=== PATIENT | male | born 1970 | race Two or more races ===

== ENCOUNTER 2016-05-20 10:20 | Inpatient (IN) | payer OTHER ==
[2016-05-20 10:30] VITALS: BMI 23.3
--- NOTE | 2016-05-20 10:57 | HP ---
COWS - Scale Resting Pulse: 1= OR 81-100 Sweatin=Flushed/Facial Moisture Restless Observation: 3= Extraneous Movement Pupil Size: 0= Normal to Room Light Bone or Joint Aches: 2= Severe Diffuse Aches Runny Nose/ Eye Tearin= Runny Nose/Eyes GI Upset > 30mins: 2= Nausea/Diarrhea Tremor Observation: 2= Slight Tremor Visible Yawning Observation: 1= 1-2x During Session Anxiety or Irritability: 2=Irritable/Anxious Goose Flesh Skin: 3=Piloerection COWS Score: 20 CIWA Score - CIWA Score Nausea/Vomitin Muscle Tremors: 4-Moderate,w/Arms Extend Anxiety: 4-Mod. Anxious/Guarded Agitation: 3 Paroxysmal Sweats: 4-Forehead w/Sweat Beads Orientation: 0-Oriented Tacttile Disturbances: 0-None Auditory Disturbances: 0-None Visual Disturbances: 0-None Headache: 0-None Present CIWA-Ar Total Score: 18 Admission ROS BHS - HPI Chief Complaint: "I don't want to miss my family." Pt is here to Detox from alcohol and Heroin. Allergies/Adverse Reactions: Allergies Allergy/AdvReac Type Severity Reaction Status Date / Time fish derived [Fish derived] Allergy Mild Difficulty Verified 05/20/16 10:30 Breathing milk [Milk] Allergy Mild Rash Verified 05/20/16 10:30 shellfish derived Allergy Mild Difficulty Verified 05/20/16 10:30 [Shellfish Derived] Breathing Unclassified Drug Allergy Unknown Verified 05/20/16 10:30 roast beef Allergy Swelling Uncoded 05/20/16 10:30 History of Present Illness: Pt. is a 46 YO male here to Detox from Alcohol and Heroin. Pt. has had previous Detox and Rehab admissions at [facility]. Exam Limitations: No Limitations - Ebola screening Have you traveled outside of the country in the last 21 days: No Have you had contact with anyone from an Ebola affected area: No Have you been sick,other than usual withdrawal symptoms: No Do you have a fever: No - Review of Systems Constitutional: Chills, Diaphoresis, Fever, Malaise EENT: reports: Tearing, Nose Congestion, Sinus Pressure Respiratory: reports: No Symptoms reported Cardiac: reports: No Symptoms Reported GI: reports: Diarrhea, Nausea : reports: No Symptoms Reported Musculoskeletal: reports: Joint Pain, Muscle Pain, Joint Stiffness Integumentary: reports: Other (Healing scab on Left thumb. Pt. reports that he fell on it approx. 4 days ago. No bleeding, unusual discharge, or signs of infection noted.) Neuro: reports: Tremors Endocrine: reports: No Symptoms Reported Hematology: reports: No Symptoms Reported Psychiatric: reports: Judgement Intact, Mood/Affect Appropiate, Orientated x3, Anxious Other Systems: Reviewed and Negative Patient History - Patient Medical History Hx Anemia: No Hx Asthma: Yes (Occasional Albuterol Inhaler Use.) Hx Chronic Obstructive Pulmonary Disease (COPD): No Hx Cancer: No Hx Cardiac Disorders: No Hx Congestive Heart Failure: No Hx Hypertension: No (BP only sometimes high when pt. uses drugs / detoxes.) Hx Hypercholesterolemia: No Hx Pacemaker: No HX Cerebrovascular Accident: No Hx Seizures: No Hx Dementia: No Hx Diabetes: No Hx Gastrointestinal Disorders: No Hx Liver Disease: Yes (Hep C, Diagnosed 1990.) Hx Genitourinary Disorders: No Hx Sexually Transmitted Disorders: No Hx Renal Disease (ESRD): No Hx Thyroid Disease: No Hx Human Immunodeficiency Virus (HIV): Yes (NOT CURRENTLY ON MEDICATION) Hx Hepatitis C: Yes (HEP B AND HEP C, NO TREATMENT YET.) Hx Depression: No Hx Suicide Attempt: No (PATIENT DENIES CURRENT SI / HI.) Hx Bipolar Disorder: No Hx Schizophrenia: No - Patient Surgical History Past Surgical History: No Hx Neurologic Surgery: No Hx Cataract Extraction: No Hx Cardiac Surgery: No Hx Lung Surgery: No Hx Breast Surgery: No Hx Breast Biopsy: No Hx Abdominal Surgery: No Hx Appendectomy: No Hx Cholecystectomy: No Hx Genitourinary Surgery: No Hx Section: No Hx Orthopedic Surgery: No Anesthesia Reaction: No - PPD History Previous Implant?: Yes Documented Results: Negative w/proof Implanted On Prior R Admission?: Yes Date: 03/12/16 Results: 0 mm PPD to be Administered?: No - Reproductive History Patient is a Female of Child Bearing Age (11 -55 yrs old): No (PATIENT IS MALE.) - Smoking Cessation Smoking history: Current every day smoker Have you smoked in the past 12 months: Yes Aproximately how many cigarettes per day: 10 Cigars Per Day: 0 Hx Chewing Tobacco Use: No Initiated information on smoking cessation: Yes 'Breaking Loose' booklet given: 05/20/16 (GIVEN ON UNIT.) - Substance & Tx. History Hx Alcohol Use: Yes Hx Substance Use: Yes Substance Use Type: Alcohol, Heroin Hx Substance Use Treatment: Yes (Previous Detox and Rehab admissions at [facility].) - Substances Abused Alcohol Route: Oral Frequency: Daily Amount used: 24 beers, 1 pint Vodka Age of first use: 14 Date of Last Use: 05/19/16 Heroin Route: Injection Frequency: Daily Amount used: 10 BAGS Age of first use: 14 Date of Last Use: 05/19/16 Family Disease History - Family Disease History Family History: Denies Admission Physical Exam [facility] - Vital Signs Vital Signs: Vital Signs - 24 hr 05/20/16 10:25 Temperature 97.1 F L Pulse Rate 81 Respiratory 22 Rate Blood Pressure 153/91 - Physical General Appearance: Yes: Nourished, Appropriately Dressed, Moderate Distress, Tremorous, Sweating, Anxious HEENTM: Yes: Hearing grossly Normal, Normocephalic, Normal Voice, PATRICIA, Pharynx Normal Respiratory: Yes: Chest Non-Tender, Lungs Clear, No Respiratory Distress Neck: Yes: No masses,lesions,Nodules, Supple, Trachea in good position Breast: Yes: Breast Exam Deferred Cardiology: Yes: Regular Rhythm, Regular Rate, S1, S2 Abdominal: Yes: Normal Bowel Sounds, Non Tender, Flat, Soft Genitourinary: Yes: Within Normal Limits Back: Yes: Normal Inspection Musculoskeletal: Yes: Gait Steady, Joint Stiffness, Other (Patient walking with a limp - he reports that that is because his legs are currently "cramping.") Extremities: Yes: Tremors Neurological: Yes: Fully Oriented, Alert, Normal Mood/Affect, Normal Response Integumentary: Yes: Normal Color, Warm, Track Ellis (Noted on Left Forearm ( near wrist) and Right Forearm. No signs of infection noted at any site.) Lymphatic: Yes: Within Normal Limits - Diagnostic (1) Alcohol dependence with uncomplicated withdrawal Current Visit: Yes Status: Acute (2) Nicotine dependence Current Visit: Yes Status: Chronic Qualifiers: Nicotine product type: cigarettes Substance use status: uncomplicated Qualified Code(s): F17.210 - Nicotine dependence, cigarettes, uncomplicated (3) Opioid dependence with withdrawal Current Visit: Yes Status: Acute (4) Asthma Current Visit: Yes Status: Chronic Qualifiers: Asthma severity: mild intermittent Asthma complication type: uncomplicated Qualified Code(s): J45.20 - Mild intermittent asthma, uncomplicated (5) HIV (human immunodeficiency virus infection) Current Visit: Yes Status: Chronic (6) Hepatitis B Current Visit: Yes Status: Chronic Qualifiers: Viral hepatitis chronicity: unspecified Hepatic coma status: without hepatic coma Hepatitis delta agent presence: without delta-agent Qualified Code(s): B19.10 - Unspecified viral hepatitis B without hepatic coma (7) Hepatitis C Current Visit: Yes Status: Chronic Qualifiers: Viral hepatitis chronicity: chronic Hepatic coma status: without hepatic coma Qualified Code(s): B18.2 - Chronic viral hepatitis C Cleared for Admission BHS - Detox or Rehab BHS Level of Care: Medically Managed (ADVISED PATIENT TO FOLLOW-UP WITH SPRAY PAINTER / REHAB MEDICAL PROVIDER AFTER DISCAHRGE FROM DETOX FOR GENERAL MEDICAL ASSESSMENT.) Detox Regimen/Protocol: Methadone/Librium BHS Breath Alcohol Content Breath Alcohol Content: 0 Urine Drug Screen - Results Drug Screen Negative: No Urine Drug Screen Results: OPI-Opiates, MTD-Methadone
[2016-05-20] MEDS ORDERED: ACETAMINOPHEN 325 MG TABLET (FP) PO PRN (11:24)
[2016-05-20] MEDS ORDERED: P-EPHED 60MG/TRIPROLIDI 2.5MG TABLET PO PRN (11:24)
[2016-05-20] MEDS ORDERED: MAGNESIUM CITRATE 300 ML BOTTLE PO PRN (11:24)
[2016-05-20] MEDS ORDERED: MAG HYDROX/AL HYDROX/SIMETH 30 ML UNIT-DOSE CUP PO PRN (11:24)
[2016-05-20] MEDS ORDERED: NICOTINE POLACRILEX 2 MG GUM BC PRN (11:24)
[2016-05-20] MEDS ORDERED: MENTHOL/PHENOL 1 EACH UD MM PRN (11:24)
[2016-05-20] MEDS ORDERED: IBUPROFEN 400 MG TABLET (FP) PO PRN (11:24)
[2016-05-20] MEDS ORDERED: MAGNESIUM HYDROX 2400MG/30ML ORAL SUSPENSION 30 ML CUP PO PRN (11:24)
[2016-05-20] MEDS ORDERED: chlordiazePOXIDE HCL 25 MG CAPSULE PO PRN (11:24)
[2016-05-20] MEDS ORDERED: LOPERAMIDE HCL 2 MG CAPSULE PO PRN (11:24)
[2016-05-20] MEDS ORDERED: hydrOXYzine PAMOATE 50 MG CAPSULE (FP) PO PRN (11:24)
[2016-05-20] MEDS ORDERED: chlordiazePOXIDE HCL 25 MG CAPSULE PO ONE (11:24)
[2016-05-20] MEDS ORDERED: guaiFENesin/D-METHORPHAN HB 10 ML UNIT-DOSE CUPS PO PRN (11:24)
[2016-05-20] MEDS ORDERED: BACITRACIN 30 GM TUBE TOPICAL OINTMENT TP SCH ×2 (11:30→11:40)
[2016-05-20] MEDS ORDERED: ALBUTEROL SO4 6.7 GM HFA INHALER IH PRN (11:30)
[2016-05-20] MEDS ORDERED: METHADONE HCL 10 MG TABLET (FOR DETOX USE ONLY) PO ONE ×2 (12:45→23:00)
[2016-05-20] MEDS: NICOTINE 21 MG/24 HOURS TOPICAL PATCH TD SCH (12:49)
[2016-05-20] MEDS: chlordiazePOXIDE HCL 25 MG CAPSULE PO SCH ×2 (17:38→22:23)
[2016-05-20] MEDS: BACITRACIN 0.9 GM PACKET TP SCH ×2 (20:20→22:23)
--- NOTE | 2016-05-20 22:22 | EKG ---
Test Reason : Blood Pressure : / mmHG Vent. Rate : 067 BPM Atrial Rate : 067 BPM P-R Int : 130 ms QRS Dur : 102 ms QT Int : 416 ms P-R-T Axes : 055 020 034 degrees QTc Int : 439 ms NORMAL SINUS RHYTHM MODERATE VOLTAGE CRITERIA FOR LVH, MAY BE NORMAL VARIANT BORDERLINE ECG NO PREVIOUS ECGS AVAILABLE Confirmed by FÁTIMA TEJADA MD ([id number]) on 05/20/2016 10:21:52 PM Referred By: Confirmed By:FÁTIMA TEJADA MD
[2016-05-20] MEDS: diphenhydrAMINE HCL 50 MG CAPSULE PO PRN (22:24)
[2016-05-20] MEDS: THIAMINE HCL 100 MG TABLET (FP) PO SCH (22:48)
[2016-05-21] MEDS: chlordiazePOXIDE HCL 25 MG CAPSULE PO SCH ×4 (05:34→22:08)
[2016-05-21] MEDS ORDERED: METHADONE HCL 10 MG TABLET (FOR DETOX USE ONLY) PO SCH (10:00)
[2016-05-21] MEDS: BACITRACIN 0.9 GM PACKET TP SCH ×2 (10:05→22:08)
[2016-05-21] MEDS: NICOTINE 21 MG/24 HOURS TOPICAL PATCH TD SCH (10:05)
[2016-05-21] MEDS: PRENATAL VITAMINS W/ FOLIC ACID TABLET (FP) PO SCH (10:05)
[2016-05-21 10:44] LABS: MCH 30.6 pg (25.7-33.7); MCHC 33.3 g/dl (32.0-35.9); MEAN CELL VOLUME 91.9 fl (80-96); MEAN PLT VOLUME 8.5 fl (7.5-11.1); PLATELET COUNT 129 K/MM3 (134-434); RDW 15.5 % (11.9-15.9); WHITE BLOOD COUNT 3.8 K/mm3 (4.0-10.0)
[2016-05-21 10:55] LABS: CALCIUM 8.6 mg/dL (8.5-10.1); GLUCOSE,RANDOM 88 mg/dL (74-106); SGOT/AST 45 U/L (15-37); SGPT/ALT 29 U/L (12-78)
[2016-05-21 10:58] LABS: ALBUMIN 2.8 g/dl (3.4-5.0); ALK PHOS 65 U/L (45-117); ANION GAP 6 (8-16); BILIRUBIN,TOTAL 0.5 mg/dL (0.2-1.0); CO2 33 mmol/L (21-32); CREATININE 0.6 mg/dL (0.7-1.3); TOT PROT 9.5 g/dl (6.4-8.2)
[2016-05-21 11:17] LABS: URINE APPEARANCE CLEAR; URINE BILIRUBIN NEGATIVE (NEGATIVE); URINE COLOR LTYELLOW; URINE GLUCOSE (UA) NEGATIVE (NEGATIVE); URINE KETONE NEGATIVE (NEGATIVE); URINE LEUK ESTERASE NEGATIVE (NEGATIVE); URINE NITRITE NEGATIVE (NEGATIVE); URINE PROTEIN NEGATIVE (NEGATIVE); URINE UROBILINOGEN NEGATIVE E.U./dl (0.2-1.0)
[2016-05-21 11:18] LABS: URINE BLOOD 1+ (NEGATIVE)
[2016-05-21 11:33] LABS: URINE RBC 3 /hpf (0-3); URINE WBC 2 /hpf (3-5)
--- NOTE | 2016-05-21 12:40 | PN ---
[facility] CIWA - CIWA Score Nausea/Vomitin-No Nausea/No Vomiting Muscle Tremors: 4-Moderate,w/Arms Extend Anxiety: 4-Mod. Anxious/Guarded Agitation: 3 Paroxysmal Sweats: 3 Orientation: 0-Oriented Tacttile Disturbances: 0-None Auditory Disturbances: 0-None Visual Disturbances: 0-None Headache: 0-None Present CIWA-Ar Total Score: 14 S COWS - Scale Resting Pulse: 0= [place] 80 or Below Sweatin=Flushed/Facial Moisture Restless Observation: 1= Difficult to Sit Still Pupil Size: 0= Normal to Room Light Bone or Joint Aches: 1= Mild Discomfort Runny Nose/ Eye Tearin= Runny Nose/Eyes GI Upset > 30mins: 2= Nausea/Diarrhea Tremor Observation of Outstretched Hands: 2= Slight Tremor Visible Yawning Observation: 1= 1-2x During Session Anxiety or Irritability: 2=Irritable/Anxious Goose Flesh Skin: 0=Smooth Skin COWS Score: 13 S Progress Note (SOAP) Subjective: Anxiety,tremors,sweating,interrupted sleep,restless. Objective: 05/21/16 12:38 Vital Signs - 8 hr 05/21/16 05/21/16 06:37 09:21 Temperature 96.7 F L 96.2 F L Pulse Rate 58 L 64 Respiratory 18 18 Rate Blood Pressure 128/85 142/83 Laboratory Tests 05/21/16 05/21/16 05/21/16 07:00 07:00 07:00 WBC 3.8 L RBC 4.12 Hgb 12.6 Hct 37.9 MCV 91.9 MCHC 33.3 RDW 15.5 Plt Count 129 L MPV 8.5 Sodium 136 Potassium 3.8 Chloride 97 L Carbon Dioxide 33 H Anion Gap 6 L BUN 12 Creatinine 0.6 L Creat Clearance w eGFR > 60 Random Glucose 88 Calcium 8.6 Total Bilirubin 0.5 D AST 45 H ALT 29 Alkaline Phosphatase 65 Total Protein 9.5 H Albumin 2.8 L Urine Color Urine Appearance Urine pH Ur Specific [place] Urine Protein Urine Glucose (UA) Urine Ketones Urine Blood Urine Nitrite Urine Bilirubin Urine Urobilinogen Ur Leukocyte Esterase Urine RBC Urine WBC Ur Epithelial Cells RPR Titer Nonreactive 05/21/16 08:00 WBC RBC Hgb Hct MCV MCHC RDW Plt Count MPV Sodium Potassium Chloride Carbon Dioxide Anion Gap BUN Creatinine Creat Clearance w eGFR Random Glucose Calcium Total Bilirubin AST ALT Alkaline Phosphatase Total Protein Albumin Urine Color Ltyellow Urine Appearance Clear Urine pH 8.0 D Ur Specific [place] 1.010 Urine Protein Negative Urine Glucose (UA) Negative Urine Ketones Negative Urine Blood 1+ H Urine Nitrite Negative Urine Bilirubin Negative Urine Urobilinogen Negative Ur Leukocyte Esterase Negative Urine RBC 3 Urine WBC 2 Ur Epithelial Cells Rare RPR Titer labs noted Assessment: 05/21/16 12:39 Withdrawal sx. Plan: Continue detox
[2016-05-21 14:02] LABS: SICKLE CELL SCREEN NEGATIVE (NEGATIVE)
[2016-05-21] MEDS: diphenhydrAMINE HCL 50 MG CAPSULE PO PRN (22:08)
[2016-05-21] MEDS: THIAMINE HCL 100 MG TABLET (FP) PO SCH (22:08)
[2016-05-22] MEDS: chlordiazePOXIDE HCL 25 MG CAPSULE PO SCH ×2 (05:10→10:02)
[2016-05-22] MEDS ORDERED: METHADONE HCL 5 MG TABLET (FOR DETOX USE ONLY) PO SCH ×2 (10:00)
[2016-05-22] MEDS: PRENATAL VITAMINS W/ FOLIC ACID TABLET (FP) PO SCH (10:01)
[2016-05-22] MEDS: BACITRACIN 0.9 GM PACKET TP SCH ×2 (10:02→22:03)
[2016-05-22] MEDS: NICOTINE 21 MG/24 HOURS TOPICAL PATCH TD SCH (10:02)
--- NOTE | 2016-05-22 10:03 | PN ---
S CIWA - CIWA Score Nausea/Vomitin-No Nausea/No Vomiting Muscle Tremors: 3 Anxiety: 3 Agitation: 4-Moderately Restless Paroxysmal Sweats: 3 Orientation: 0-Oriented Tacttile Disturbances: 0-None Auditory Disturbances: 0-None Visual Disturbances: 0-None Headache: 0-None Present CIWA-Ar Total Score: 13 BHS COWS - Scale Resting Pulse: 0= [place] 80 or Below Sweatin=Flushed/Facial Moisture Restless Observation: 1= Difficult to Sit Still Pupil Size: 0= Normal to Room Light Bone or Joint Aches: 1= Mild Discomfort Runny Nose/ Eye Tearin= Nasal Congestion GI Upset > 30mins: 1= Stomach Cramp Tremor Observation of Outstretched Hands: 2= Slight Tremor Visible Yawning Observation: 1= 1-2x During Session Anxiety or Irritability: 2=Irritable/Anxious Goose Flesh Skin: 0=Smooth Skin COWS Score: 11 S Progress Note (SOAP) Subjective: Anxiety,tremors,sweating,interrupted sleep,body aches Objective: 05/22/16 10:03 Vital Signs - 8 hr 05/22/16 05/22/16 05/22/16 03:25 05:52 09:43 Temperature 97.5 F L 96.1 F L Pulse Rate 74 75 Respiratory 18 16 18 Rate Blood Pressure 112/80 103/78 Laboratory Last Values WBC 3.8 K/mm3 (4.0-10.0) L 05/21/16 07:00 RBC 4.12 M/mm3 (4.00-5.60) 05/21/16 07:00 Hgb 12.6 GM/dL (11.7-16.9) 05/21/16 07:00 Hct 37.9 % (35.4-49) 05/21/16 07:00 MCV 91.9 fl (80-96) 05/21/16 07:00 MCHC 33.3 g/dl (32.0-35.9) 05/21/16 07:00 RDW 15.5 % (11.9-15.9) 05/21/16 07:00 Plt Count 129 K/MM3 (134-434) L 05/21/16 07:00 MPV 8.5 fl (7.5-11.1) 05/21/16 07:00 Sickle Cell Screen Negative (NEGATIVE) 05/21/16 07:00 Sodium 136 mmol/L (136-145) 05/21/16 07:00 Potassium 3.8 mmol/L (3.5-5.1) 05/21/16 07:00 Chloride 97 mmol/L (98-107) L 05/21/16 07:00 Carbon Dioxide 33 mmol/L (21-32) H 05/21/16 07:00 Anion Gap 6 (8-16) L 05/21/16 07:00 BUN 12 mg/dL (7-18) 05/21/16 07:00 Creatinine 0.6 mg/dL (0.7-1.3) L 05/21/16 07:00 Creat Clearance w eGFR > 60 (>60) 05/21/16 07:00 Random Glucose 88 mg/dL (74-106) 05/21/16 07:00 Calcium 8.6 mg/dL (8.5-10.1) 05/21/16 07:00 Total Bilirubin 0.5 mg/dL (0.2-1.0) D 05/21/16 07:00 AST 45 U/L (15-37) H 05/21/16 07:00 ALT 29 U/L (12-78) 05/21/16 07:00 Alkaline Phosphatase 65 U/L (45-117) 05/21/16 07:00 Total Protein 9.5 g/dl (6.4-8.2) H 05/21/16 07:00 Albumin 2.8 g/dl (3.4-5.0) L 05/21/16 07:00 Urine Color Ltyellow 05/21/16 08:00 Urine Appearance Clear 05/21/16 08:00 Urine pH 8.0 (5.0-8.0) D 05/21/16 08:00 Ur Specific [place] 1.010 (1.001-1.035) 05/21/16 08:00 Urine Protein Negative (NEGATIVE) 05/21/16 08:00 Urine Glucose (UA) Negative (NEGATIVE) 05/21/16 08:00 Urine Ketones Negative (NEGATIVE) 05/21/16 08:00 Urine Blood 1+ (NEGATIVE) H 05/21/16 08:00 Urine Nitrite Negative (NEGATIVE) 05/21/16 08:00 Urine Bilirubin Negative (NEGATIVE) 05/21/16 08:00 Urine Urobilinogen Negative E.U./dl (0.2-1.0) 05/21/16 08:00 Ur Leukocyte Esterase Negative (NEGATIVE) 05/21/16 08:00 Urine RBC 3 /hpf (0-3) 05/21/16 08:00 Urine WBC 2 /hpf (3-5) 05/21/16 08:00 Ur Epithelial Cells Rare /hpf (FEW) 05/21/16 08:00 RPR Titer Nonreactive (NONREACTIVE) 05/21/16 07:00 Hepatitis C Antibody >11.0 s/co ratio (0.0-0.9) H 05/20/16 07:00 labs noted Assessment: 05/22/16 10:04 Withdrawal sx. Plan: continue detox
[2016-05-22] MEDS: chlordiazePOXIDE 5 MG CAPSULE PO SCH ×2 (16:59→22:03)
[2016-05-22] MEDS: diphenhydrAMINE HCL 50 MG CAPSULE PO PRN (22:03)
[2016-05-22] MEDS: THIAMINE HCL 100 MG TABLET (FP) PO SCH (22:03)
[2016-05-23] MEDS: chlordiazePOXIDE 5 MG CAPSULE PO SCH ×2 (05:18→10:04)
[2016-05-23] MEDS ORDERED: METHADONE HCL 10 MG TABLET (FOR DETOX USE ONLY) PO SCH (10:00)
[2016-05-23] MEDS: PRENATAL VITAMINS W/ FOLIC ACID TABLET (FP) PO SCH (10:03)
[2016-05-23] MEDS: NICOTINE 21 MG/24 HOURS TOPICAL PATCH TD SCH (10:04)
[2016-05-23] MEDS: BACITRACIN 0.9 GM PACKET TP SCH ×2 (10:04→22:04)
--- NOTE | 2016-05-23 12:20 | PN ---
BHS Progress Note (SOAP) Subjective: Sweating,interrupted sleep,restless. Objective: 05/23/16 12:19 Vital Signs - 8 hr 05/23/16 05/23/16 06:06 09:39 Temperature 96.3 F L 96.8 F L Pulse Rate 71 78 Respiratory 16 18 Rate Blood Pressure 108/73 103/65 Laboratory Last Values WBC 3.8 K/mm3 (4.0-10.0) L 05/21/16 07:00 RBC 4.12 M/mm3 (4.00-5.60) 05/21/16 07:00 Hgb 12.6 GM/dL (11.7-16.9) 05/21/16 07:00 Hct 37.9 % (35.4-49) 05/21/16 07:00 MCV 91.9 fl (80-96) 05/21/16 07:00 MCHC 33.3 g/dl (32.0-35.9) 05/21/16 07:00 RDW 15.5 % (11.9-15.9) 05/21/16 07:00 Plt Count 129 K/MM3 (134-434) L 05/21/16 07:00 MPV 8.5 fl (7.5-11.1) 05/21/16 07:00 Sickle Cell Screen Negative (NEGATIVE) 05/21/16 07:00 Sodium 136 mmol/L (136-145) 05/21/16 07:00 Potassium 3.8 mmol/L (3.5-5.1) 05/21/16 07:00 Chloride 97 mmol/L (98-107) L 05/21/16 07:00 Carbon Dioxide 33 mmol/L (21-32) H 05/21/16 07:00 Anion Gap 6 (8-16) L 05/21/16 07:00 BUN 12 mg/dL (7-18) 05/21/16 07:00 Creatinine 0.6 mg/dL (0.7-1.3) L 05/21/16 07:00 Creat Clearance w eGFR > 60 (>60) 05/21/16 07:00 Random Glucose 88 mg/dL (74-106) 05/21/16 07:00 Calcium 8.6 mg/dL (8.5-10.1) 05/21/16 07:00 Total Bilirubin 0.5 mg/dL (0.2-1.0) D 05/21/16 07:00 AST 45 U/L (15-37) H 05/21/16 07:00 ALT 29 U/L (12-78) 05/21/16 07:00 Alkaline Phosphatase 65 U/L (45-117) 05/21/16 07:00 Total Protein 9.5 g/dl (6.4-8.2) H 05/21/16 07:00 Albumin 2.8 g/dl (3.4-5.0) L 05/21/16 07:00 Urine Color Ltyellow 05/21/16 08:00 Urine Appearance Clear 05/21/16 08:00 Urine pH 8.0 (5.0-8.0) D 05/21/16 08:00 Ur Specific [place] 1.010 (1.001-1.035) 05/21/16 08:00 Urine Protein Negative (NEGATIVE) 05/21/16 08:00 Urine Glucose (UA) Negative (NEGATIVE) 05/21/16 08:00 Urine Ketones Negative (NEGATIVE) 05/21/16 08:00 Urine Blood 1+ (NEGATIVE) H 05/21/16 08:00 Urine Nitrite Negative (NEGATIVE) 05/21/16 08:00 Urine Bilirubin Negative (NEGATIVE) 05/21/16 08:00 Urine Urobilinogen Negative E.U./dl (0.2-1.0) 05/21/16 08:00 Ur Leukocyte Esterase Negative (NEGATIVE) 05/21/16 08:00 Urine RBC 3 /hpf (0-3) 05/21/16 08:00 Urine WBC 2 /hpf (3-5) 05/21/16 08:00 Ur Epithelial Cells Rare /hpf (FEW) 05/21/16 08:00 RPR Titer Nonreactive (NONREACTIVE) 05/21/16 07:00 Hepatitis C Antibody >11.0 s/co ratio (0.0-0.9) H 05/20/16 07:00 labs noted Assessment: 05/23/16 12:20 Withdrawal sx. Plan: Continue detox
[2016-05-23] MEDS: chlordiazePOXIDE HCL 10 MG CAPSULE PO SCH ×2 (17:09→22:05)
[2016-05-23] MEDS: diphenhydrAMINE HCL 50 MG CAPSULE PO PRN (22:05)
[2016-05-23] MEDS: THIAMINE HCL 100 MG TABLET (FP) PO SCH (22:05)
[2016-05-24] MEDS: chlordiazePOXIDE HCL 10 MG CAPSULE PO SCH (05:10)
[2016-05-24] MEDS ORDERED: METHADONE HCL 5 MG TABLET (FOR DETOX USE ONLY) PO SCH (06:00)
[2016-05-24 06:55] VITALS: BP 106/78; PULSE 77; TEMP 98.6
--- NOTE | 2016-05-24 09:18 | DS ---
[facility] Detox Discharge Summary Admission Date: 05/20/16 Discharge Date: 05/24/16 - History Present History: Alcohol Dependence, Opioid Dependence Pertinent Past History: Asthma HIV infection - Physical Exam Results Vital Signs: Vital Signs Temperature 98.6 F 05/24/16 06:54 Pulse Rate 77 05/24/16 06:54 Respiratory Rate 16 05/24/16 06:54 Blood Pressure 106/78 05/24/16 06:54 O2 Sat by Pulse Oximetry (%) Pertinent Admission Physical Exam Findings: Withdrawal sx Laboratory Last Values WBC 3.8 K/mm3 (4.0-10.0) L 05/21/16 07:00 RBC 4.12 M/mm3 (4.00-5.60) 05/21/16 07:00 Hgb 12.6 GM/dL (11.7-16.9) 05/21/16 07:00 Hct 37.9 % (35.4-49) 05/21/16 07:00 MCV 91.9 fl (80-96) 05/21/16 07:00 MCHC 33.3 g/dl (32.0-35.9) 05/21/16 07:00 RDW 15.5 % (11.9-15.9) 05/21/16 07:00 Plt Count 129 K/MM3 (134-434) L 05/21/16 07:00 MPV 8.5 fl (7.5-11.1) 05/21/16 07:00 Sickle Cell Screen Negative (NEGATIVE) 05/21/16 07:00 Sodium 136 mmol/L (136-145) 05/21/16 07:00 Potassium 3.8 mmol/L (3.5-5.1) 05/21/16 07:00 Chloride 97 mmol/L (98-107) L 05/21/16 07:00 Carbon Dioxide 33 mmol/L (21-32) H 05/21/16 07:00 Anion Gap 6 (8-16) L 05/21/16 07:00 BUN 12 mg/dL (7-18) 05/21/16 07:00 Creatinine 0.6 mg/dL (0.7-1.3) L 05/21/16 07:00 Creat Clearance w eGFR > 60 (>60) 05/21/16 07:00 Random Glucose 88 mg/dL (74-106) 05/21/16 07:00 Calcium 8.6 mg/dL (8.5-10.1) 05/21/16 07:00 Total Bilirubin 0.5 mg/dL (0.2-1.0) D 05/21/16 07:00 AST 45 U/L (15-37) H 05/21/16 07:00 ALT 29 U/L (12-78) 05/21/16 07:00 Alkaline Phosphatase 65 U/L (45-117) 05/21/16 07:00 Total Protein 9.5 g/dl (6.4-8.2) H 05/21/16 07:00 Albumin 2.8 g/dl (3.4-5.0) L 05/21/16 07:00 Urine Color Ltyellow 05/21/16 08:00 Urine Appearance Clear 05/21/16 08:00 Urine pH 8.0 (5.0-8.0) D 05/21/16 08:00 Ur Specific [place] 1.010 (1.001-1.035) 05/21/16 08:00 Urine Protein Negative (NEGATIVE) 05/21/16 08:00 Urine Glucose (UA) Negative (NEGATIVE) 05/21/16 08:00 Urine Ketones Negative (NEGATIVE) 05/21/16 08:00 Urine Blood 1+ (NEGATIVE) H 05/21/16 08:00 Urine Nitrite Negative (NEGATIVE) 05/21/16 08:00 Urine Bilirubin Negative (NEGATIVE) 05/21/16 08:00 Urine Urobilinogen Negative E.U./dl (0.2-1.0) 05/21/16 08:00 Ur Leukocyte Esterase Negative (NEGATIVE) 05/21/16 08:00 Urine RBC 3 /hpf (0-3) 05/21/16 08:00 Urine WBC 2 /hpf (3-5) 05/21/16 08:00 Ur Epithelial Cells Rare /hpf (FEW) 05/21/16 08:00 RPR Titer Nonreactive (NONREACTIVE) 05/21/16 07:00 Hepatitis C Antibody >11.0 s/co ratio (0.0-0.9) H 05/20/16 07:00 labs noted - Treatment Hospital Course: Detox Protocol Followed, Detoxed Safely, Responded well, Discharged Condition Good, Rehab Referral Accepted Patient has Accepted a Rehab Referral to: [facility] IOP - Medication Discharge Medications: Ambulatory Orders Albuterol Sulfate Inhaler - [Ventolin HFA Inhaler -] 2 inh IH Q4H PRN #1 inhaler 03/15/16 - Diagnosis (1) Alcohol dependence with uncomplicated withdrawal Current Visit: Yes Status: Acute (2) Opioid dependence with withdrawal Current Visit: Yes Status: Acute (3) Asthma Current Visit: Yes Status: Chronic Qualifiers: Asthma severity: mild intermittent Asthma complication type: uncomplicated Qualified Code(s): J45.20 - Mild intermittent asthma, uncomplicated (4) HIV (human immunodeficiency virus infection) Current Visit: Yes Status: Chronic (5) Hepatitis B Current Visit: Yes Status: Chronic Qualifiers: Viral hepatitis chronicity: unspecified Hepatic coma status: without hepatic coma Hepatitis delta agent presence: without delta-agent Qualified Code(s): B19.10 - Unspecified viral hepatitis B without hepatic coma (6) Hepatitis C Current Visit: Yes Status: Chronic Qualifiers: Viral hepatitis chronicity: chronic Hepatic coma status: without hepatic coma Qualified Code(s): B18.2 - Chronic viral hepatitis C (7) Nicotine dependence Current Visit: Yes Status: Chronic Qualifiers: Nicotine product type: cigarettes Substance use status: uncomplicated Qualified Code(s): F17.210 - Nicotine dependence, cigarettes, uncomplicated - AMA Did Patient Leave Against Medical Advice: No
[2016-05-24] MEDS ORDERED: METHADONE HCL 10 MG TABLET (FOR DETOX USE ONLY) PO SCH (10:00)
[2016-05-24 14:18] LABS: HCV LOG 10 6.674 (.)
[2016-05-25] MEDS ORDERED: METHADONE HCL 5 MG TABLET (FOR DETOX USE ONLY) PO SCH (06:00)
== END 2016-05-24 08:28 | disposition home or self-care (01) | DRG 773 ==
LOC: YASAS 10:20 → Y3N 12:05
PROVIDERS: ADMIT Internal Medicine; ATTEND Internal Medicine
PROC: HZ2ZZZZ Detoxification Services for Substance Abuse Treatment (ICD-10-PCS; principal; 2016-05-24)
DX: F11.23 Opioid dependence with withdrawal (principal); F10.230 Alcohol dependence with withdrawal, uncomplicated; F17.210 Nicotine dependence, cigarettes, uncomplicated; J45.20 Mild intermittent asthma, uncomplicated; Z21 Asymptomatic human immunodeficiency virus [HIV] infection status; B19.10 Unspecified viral hepatitis B without hepatic coma; B18.2 Chronic viral hepatitis C
CPT/HCPCS: 36415; 80053; 81003; 81015; 85027; 85660; 86593; 87522; 93005; 93010

== ENCOUNTER 2017-04-12 11:33 | Inpatient (IN) | payer OTHER ==
[2017-04-12 12:39] VITALS: BMI 23.6
--- NOTE | 2017-04-12 16:57 | HP ---
COWS - Scale Resting Pulse: 1= HI 81-100 Sweatin= Chills/Flushing Restless Observation: 3= Extraneous Movement Pupil Size: 1= Pupils >than Normal Bone or Joint Aches: 2= Severe Diffuse Aches Runny Nose/ Eye Tearin= Runny Nose/Eyes GI Upset > 30mins: 2= Nausea/Diarrhea Tremor Observation: 2= Slight Tremor Visible Yawning Observation: 1= 1-2x During Session Anxiety or Irritability: 2=Irritable/Anxious Goose Flesh Skin: 3=Piloerection COWS Score: 20 CIWA Score - CIWA Score Nausea/Vomitin Muscle Tremors: 2 Anxiety: 2 Agitation: 1-Slight > Activity Paroxysmal Sweats: 2 Orientation: 1-Uncertain about Date Tacttile Disturbances: 0-None Auditory Disturbances: 1-Very Mild Visual Disturbances: 1-Very Mild Sensitivity Headache: 0-None Present CIWA-Ar Total Score: 13 Admission ROS S - HPI Chief Complaint: WITHDRAWAL SYMPTOMS Allergies/Adverse Reactions: Allergies Allergy/AdvReac Type Severity Reaction Status Date / Time fish derived [Fish derived] Allergy Mild Difficulty Verified 05/20/16 10:30 Breathing milk [Milk] Allergy Mild Rash Verified 05/20/16 10:30 shellfish derived Allergy Mild Difficulty Verified 05/20/16 10:30 [Shellfish Derived] Breathing Unclassified Drug Allergy Unknown Verified 05/20/16 10:30 roast beef Allergy Swelling Uncoded 05/20/16 10:30 History of Present Illness: 47 Y.O. MAN WITH A HISTORY OF OPIOID AND ALCOHOL DEPENDENCE IS HERE SEEKING DETOX. HE WAS LAST ADMITTED HERE FOR DETOX ON 05/2016. LONGEST PERIOD CLEAN HAS BEEN 8 YEARS. Exam Limitations: Intoxication, Physical Impairment (LEFT KNEE BRACE; AMBULATES WITH A CANE.) - Ebola screening Have you traveled outside of the country in the last 21 days: No Have you had contact with anyone from an Ebola affected area: No Have you been sick,other than usual withdrawal symptoms: No Do you have a fever: No - Review of Systems Constitutional: Chills, Night Sweats, Changes in sleep EENT: reports: Tearing, Nose Congestion Respiratory: reports: No Symptoms reported Cardiac: reports: No Symptoms Reported GI: reports: Nausea, Abdominal cramping : reports: No Symptoms Reported Musculoskeletal: reports: Joint Pain, Muscle Pain, Joint Stiffness Integumentary: reports: No Symptoms Reported Neuro: reports: Tremors, Unsteady Gait Endocrine: reports: No Symptoms Reported Hematology: reports: No Symptoms Reported Psychiatric: reports: Anxious Other Systems: Reviewed and Negative Patient History - Patient Medical History Hx Anemia: No Hx Asthma: Yes (Occasional Albuterol Inhaler Use.) Hx Chronic Obstructive Pulmonary Disease (COPD): No Hx Cancer: No Hx Cardiac Disorders: No Hx Congestive Heart Failure: No Hx Hypertension: No (BP only sometimes high when pt. uses drugs / detoxes.) Hx Hypercholesterolemia: No Hx Pacemaker: No HX Cerebrovascular Accident: No Hx Seizures: No Hx Dementia: No Hx Diabetes: No Hx Gastrointestinal Disorders: No Hx Liver Disease: Yes (Hep C, Diagnosed 1990, Cirrhosis ) Hx Genitourinary Disorders: No Hx Sexually Transmitted Disorders: No Hx Renal Disease (ESRD): No Hx Thyroid Disease: No Hx Human Immunodeficiency Virus (HIV): Yes (NOT CURRENTLY ON MEDICATION) Hx Hepatitis C: Yes (HEP B AND HEP C, NO TREATMENT YET.) Hx Depression: No Hx Suicide Attempt: No (PATIENT DENIES CURRENT SI / HI.) Hx Bipolar Disorder: No Hx Schizophrenia: No - Patient Surgical History Past Surgical History: Yes Hx Neurologic Surgery: No Hx Cataract Extraction: No Hx Cardiac Surgery: No Hx Lung Surgery: No Hx Breast Surgery: No Hx Breast Biopsy: No Hx Abdominal Surgery: No Hx Appendectomy: No Hx Cholecystectomy: No Hx Genitourinary Surgery: No Hx Section: No Hx Orthopedic Surgery: Yes (RIGHT KNEE PATELLAR FX AND TENDON REPAIR ) Anesthesia Reaction: No - PPD History Previous Implant?: Yes Documented Results: Negative w/proof Implanted On Prior [facility] Admission?: Yes Date: 03/12/16 Results: 0 mm PPD to be Administered?: Yes - Reproductive History Patient is a Female of Child Bearing Age (11 -55 yrs old): No - Smoking Cessation Smoking history: Current every day smoker Have you smoked in the past 12 months: Yes Aproximately how many cigarettes per day: 10 Cigars Per Day: 0 Hx Chewing Tobacco Use: No Initiated information on smoking cessation: Yes 'Breaking Loose' booklet given: 04/12/17 - Substance & Tx. History Hx Alcohol Use: Yes Hx Substance Use: Yes Substance Use Type: Alcohol, Heroin Hx Substance Use Treatment: Yes (DETOX: 05/2016) - Substances Abused Alcohol Route: Oral Frequency: Daily Amount used: 24 CANS OF 24OZ OF BEER Age of first use: 10 Date of Last Use: 04/12/17 Heroin Route: Injection Frequency: Daily Amount used: 6 BAGS Age of first use: 14 Date of Last Use: 04/12/17 Family Disease History - Family Disease History Family Disease History: Diabetes: Brother (OPIOID DEPENDENCE; ), Other: Brother Admission Physical Exam S - Vital Signs Vital Signs: Vital Signs - 24 hr 04/12/17 12:37 Temperature 96.5 F L Pulse Rate 83 Respiratory 18 Rate Blood Pressure 130/82 - Physical General Appearance: Yes: Tremorous, Anxious HEENTM: Yes: Hearing grossly Normal, Normal ENT Inspection, Normocephalic, Normal Voice Respiratory: Yes: Chest Non-Tender, Lungs Clear, Normal Breath Sounds, No Respiratory Distress, No Accessory Muscle Use Neck: Yes: No masses,lesions,Nodules, Trachea in good position Breast: Yes: Breast Exam Deferred Cardiology: Yes: Regular Rhythm, Regular Rate Abdominal: Yes: Normal Bowel Sounds, Non Tender, Flat, Soft Genitourinary: Yes: Within Normal Limits, Other (NO COMPLAINTS REPORTE) Back: Yes: Normal Inspection Musculoskeletal: Yes: Joint Stiffness, Muscle weakness, Other (UNSTEADY GAIT; BRACE TO RIGHT KNEE. AMBULATES WITH THE USE OF A CANE.) Extremities: Yes: Tremors Neurological: Yes: Alert, Normal Mood/Affect, Normal Response Integumentary: Yes: Normal Color, Dry, Warm Lymphatic: Yes: Within Normal Limits - Diagnostic (1) Right patella fracture Current Visit: Yes Status: Chronic (2) Unsteady gait Current Visit: Yes Status: Chronic (3) Alcohol dependence with uncomplicated withdrawal Current Visit: Yes Status: Chronic (4) Asthma Current Visit: Yes Status: Chronic Qualifiers: Asthma severity: mild intermittent Asthma complication type: uncomplicated Qualified Code(s): J45.20 - Mild intermittent asthma, uncomplicated (5) HIV (human immunodeficiency virus infection) Current Visit: Yes Status: Chronic (6) Hepatitis B Current Visit: Yes Status: Chronic Qualifiers: Viral hepatitis chronicity: unspecified Hepatic coma status: without hepatic coma Hepatitis delta agent presence: without delta-agent Qualified Code(s): B19.10 - Unspecified viral hepatitis B without hepatic coma (7) Hepatitis C Current Visit: Yes Status: Chronic Qualifiers: Viral hepatitis chronicity: chronic Hepatic coma status: without hepatic coma Qualified Code(s): B18.2 - Chronic viral hepatitis C (8) Nicotine dependence Current Visit: Yes Status: Chronic Qualifiers: Nicotine product type: cigarettes Substance use status: uncomplicated Qualified Code(s): F17.210 - Nicotine dependence, cigarettes, uncomplicated (9) Cirrhosis of liver Current Visit: Yes Status: Chronic Cleared for Admission S - Detox or Rehab [facility] Level of Care: Medically Managed Detox Regimen/Protocol: Methadone/Librium S Breath Alcohol Content Breath Alcohol Content: 0.193 Urine Drug Screen - Results Drug Screen Negative: No Urine Drug Screen Results: OPI-Opiates, MTD-Methadone
[2017-04-12] MEDS ORDERED: MAG HYDROX/AL HYDROX/SIMETH 30 ML UNIT-DOSE CUP PO PRN (17:17)
[2017-04-12] MEDS ORDERED: P-EPHED 60MG/TRIPROLIDI 2.5MG TABLET PO PRN (17:17)
[2017-04-12] MEDS ORDERED: MAGNESIUM HYDROX 2400MG/30ML ORAL SUSPENSION 30 ML CUP PO PRN (17:17)
[2017-04-12] MEDS ORDERED: MAGNESIUM CITRATE 300 ML BOTTLE PO PRN (17:17)
[2017-04-12] MEDS ORDERED: LOPERAMIDE HCL 2 MG CAPSULE PO PRN (17:17)
[2017-04-12] MEDS ORDERED: MENTHOL/PHENOL 1 EACH UD MM PRN (17:17)
[2017-04-12] MEDS ORDERED: chlordiazePOXIDE HCL 25 MG CAPSULE PO PRN (17:17)
[2017-04-12] MEDS ORDERED: hydrOXYzine PAMOATE 50 MG CAPSULE (FP) PO PRN (17:17)
[2017-04-12] MEDS ORDERED: ACETAMINOPHEN 325 MG TABLET (FP) PO PRN (17:17)
[2017-04-12] MEDS ORDERED: NICOTINE POLACRILEX 2 MG GUM BC PRN (17:17)
[2017-04-12] MEDS ORDERED: guaiFENesin/D-METHORPHAN HB 10 ML UNIT-DOSE CUPS PO PRN (17:17)
[2017-04-12] MEDS ORDERED: IBUPROFEN 400 MG TABLET (FP) PO PRN (17:21)
[2017-04-12] MEDS ORDERED: ALBUTEROL SO4 18 GM HFA INHALER IH PRN (17:22)
[2017-04-12] MEDS ORDERED: METHADONE HCL 10 MG TABLET (FOR DETOX USE ONLY) PO ONE ×2 (18:15→23:00)
[2017-04-12] MEDS ORDERED: chlordiazePOXIDE HCL 25 MG CAPSULE PO ONE (18:15)
[2017-04-12] MEDS ORDERED: THIAMINE HCL 100 MG TABLET (FP) PO SCH (22:00)
[2017-04-12] MEDS: chlordiazePOXIDE HCL 25 MG CAPSULE PO SCH (22:55)
[2017-04-12 23:33] LABS: URINE APPEARANCE CLEAR; URINE BILIRUBIN NEGATIVE (NEGATIVE); URINE BLOOD 2+ (NEGATIVE); URINE COLOR COLORLESS; URINE GLUCOSE (UA) NEGATIVE (NEGATIVE); URINE KETONE NEGATIVE (NEGATIVE); URINE LEUK ESTERASE NEGATIVE (NEGATIVE); URINE NITRITE NEGATIVE (NEGATIVE); URINE PROTEIN NEGATIVE (NEGATIVE); URINE UROBILINOGEN NEGATIVE mg/dL (0.2-1.0)
[2017-04-12 23:59] LABS: EPI CELLS RARE /HPF (FEW)
[2017-04-13] MEDS: chlordiazePOXIDE HCL 25 MG CAPSULE PO SCH (05:51)
[2017-04-13 06:33] VITALS: BP 146/89; PULSE 86; TEMP 99
[2017-04-13 09:59] LABS: HEMOGLOBIN 11.3 GM/dL (11.7-16.9); MCH 30.1 pg (25.7-33.7); MEAN PLT VOLUME 8.5 fl (7.5-11.1); WHITE BLOOD COUNT 4.7 K/mm3 (4.0-10.0)
[2017-04-13] MEDS ORDERED: NICOTINE 14 MG/24 HOURS TOPICAL PATCH TD SCH (10:00)
[2017-04-13] MEDS ORDERED: PRENATAL VITAMINS W/ FOLIC ACID TABLET (FP) PO SCH (10:00)
[2017-04-13] MEDS ORDERED: METHADONE HCL 10 MG TABLET (FOR DETOX USE ONLY) PO SCH (10:00)
[2017-04-13 10:01] LABS: HEMATOCRIT 34.6 % (35.4-49); MCHC 32.8 g/dl (32.0-35.9); PLATELET COUNT 106 K/MM3 (134-434); RBC 3.76 M/mm3 (4.00-5.60); RDW 15.9 % (11.9-15.9)
[2017-04-13 10:11] LABS: ALBUMIN 2.6 g/dl (3.4-5.0); ANION GAP 7 (8-16); BLOOD UREA NITROGEN 8 mg/dL (7-18); CALCIUM 7.6 mg/dL (8.5-10.1); CHLORIDE 102 mmol/L (98-107); CO2 27 mmol/L (21-32); GLUCOSE,RANDOM 107 mg/dL (74-106); POTASSIUM 3.7 mmol/L (3.5-5.1); SODIUM 136 mmol/L (136-145)
[2017-04-13 10:15] LABS: ALK PHOS 98 U/L (45-117); BILIRUBIN,TOTAL 0.4 mg/dL (0.2-1.0); CREATININE 0.7 mg/dL (0.7-1.3); SGOT/AST 73 U/L (15-37); SGPT/ALT 33 U/L (12-78)
[2017-04-13 10:16] LABS: TOT PROT 10.9 g/dl (6.4-8.2)
--- NOTE | 2017-04-13 12:22 | EKG ---
Test Reason : Blood Pressure : / mmHG Vent. Rate : 078 BPM Atrial Rate : 078 BPM P-R Int : 144 ms QRS Dur : 090 ms QT Int : 388 ms P-R-T Axes : 061 015 038 degrees QTc Int : 442 ms SINUS RHYTHM WITH PREMATURE SUPRAVENTRICULAR COMPLEXES OTHERWISE NORMAL ECG Confirmed by MD AMADEO, ROBBI ([id number]) on 04/13/2017 12:22:40 PM Referred By: Confirmed By:ROBBI CHILDS MD
--- NOTE | 2017-04-13 12:27 | EKG ---
Test Reason : Blood Pressure : / mmHG Vent. Rate : 076 BPM Atrial Rate : 076 BPM P-R Int : 140 ms QRS Dur : 098 ms QT Int : 422 ms P-R-T Axes : 062 012 029 degrees QTc Int : 474 ms SINUS RHYTHM WITH FREQUENT PREMATURE ATRIAL COMPLEXES OTHERWISE NORMAL ECG Confirmed by MD AMADEO, ROBBI ([id number]) on 04/13/2017 12:27:08 PM Referred By: Confirmed By:ROBBI CHILDS MD
--- NOTE | 2017-04-13 14:39 | DS ---
[facility] Detox Discharge Summary Admission Date: 04/12/17 Discharge Date: 04/13/17 - History Present History: Alcohol Dependence Additional Comments: PATIENT DOES NOT WISH TO STAY TO COMPLETE DETOX REGIMEN. RISKS OF LEAVING DETOX UNIT PRIOR TO COMPLETION OF DETOX REGIMEN EXPLAINED TO PATIENT. PATIENT ADVISED TO GO IMMEDIATELY TO NEAREST ER SHOULD ANY INTOLERABLE DETOX SYMPTOMS DEVELOP AT ANY TIME. PATIENT REPORTS THAT HE CURRENTLY HAS ADEQUATE SUPPLY OF HOME MEDICATIONS AT HOME. PATIENT LEFT DETOX UNIT IN STABLE MEDICAL CONDITION. Pertinent Past History: Asthma, Hep B, Hep C, Nicotine Dependence, HIV, Cirrhosis of Liver, History of fracture of patella of right knee. - Physical Exam Results Vital Signs: Vital Signs Temperature 99.0 F 04/13/17 06:32 Pulse Rate 86 04/13/17 06:32 Respiratory Rate 19 04/13/17 06:32 Blood Pressure 146/89 04/13/17 06:32 O2 Sat by Pulse Oximetry (%) Pertinent Admission Physical Exam Findings: WITHDRAWAL SYMPTOMS. Laboratory Tests 04/12/17 04/13/17 04/13/17 23:13 06:06 06:06 WBC 4.7 RBC 3.76 L Hgb 11.3 L D Hct 34.6 L MCV 92.0 MCH 30.1 MCHC 32.8 RDW 15.9 Plt Count 106 L MPV 8.5 Sodium 136 Potassium 3.7 Chloride 102 Carbon Dioxide 27 Anion Gap 7 L BUN 8 D Creatinine 0.7 Creat Clearance w eGFR > 60 Random Glucose 107 H D Calcium 7.6 L Total Bilirubin 0.4 AST 73 H D ALT 33 Alkaline Phosphatase 98 D Total Protein 10.9 H Albumin 2.6 L Urine Color Colorless Urine Appearance Clear Urine pH 7.0 Ur Specific [place] 1.002 Urine Protein Negative Urine Glucose (UA) Negative Urine Ketones Negative Urine Blood 2+ H Urine Nitrite Negative Urine Bilirubin Negative Urine Urobilinogen Negative Ur Leukocyte Esterase Negative Urine WBC (Auto) <1 Urine RBC (Auto) <1 Ur Epithelial Cells Rare RPR Titer 04/13/17 06:06 WBC RBC Hgb Hct MCV MCH MCHC RDW Plt Count MPV Sodium Potassium Chloride Carbon Dioxide Anion Gap BUN Creatinine Creat Clearance w eGFR Random Glucose Calcium Total Bilirubin AST ALT Alkaline Phosphatase Total Protein Albumin Urine Color Urine Appearance Urine pH Ur Specific [place] Urine Protein Urine Glucose (UA) Urine Ketones Urine Blood Urine Nitrite Urine Bilirubin Urine Urobilinogen Ur Leukocyte Esterase Urine WBC (Auto) Urine RBC (Auto) Ur Epithelial Cells RPR Titer Nonreactive LABS NOTED. - Treatment Hospital Course: Detoxed Safely - Medication Discharge Medications: Ambulatory Orders Albuterol Sulfate Inhaler - [Ventolin HFA Inhaler -] 2 inh IH Q4H PRN #1 inhaler 03/15/16 - Diagnosis (1) Opioid dependence with withdrawal Status: Acute (2) Right patella fracture Status: Acute Qualifiers: Encounter type: sequela Fracture type: closed Fracture morphology: unspecified fracture morphology Fracture alignment: nondisplaced Qualified Code(s): S82.001S - Unspecified fracture of right patella, sequela (3) Unsteady gait Status: Acute (4) Alcohol dependence with uncomplicated withdrawal Status: Acute (5) Asthma Status: Chronic Qualifiers: Asthma severity: mild Asthma persistence: intermittent Asthma complication type: uncomplicated Qualified Code(s): J45.20 - Mild intermittent asthma, uncomplicated (6) Cirrhosis of liver Status: Chronic Qualifiers: Hepatic cirrhosis type: unspecified hepatic cirrhosis Ascites presence: without ascites Qualified Code(s): K74.60 - Unspecified cirrhosis of liver (7) HIV (human immunodeficiency virus infection) Status: Chronic (8) Hepatitis B Status: Chronic Qualifiers: Viral hepatitis chronicity: unspecified Hepatic coma status: without hepatic coma Hepatitis delta agent presence: without delta-agent Qualified Code(s): B19.10 - Unspecified viral hepatitis B without hepatic coma (9) Hepatitis C Status: Chronic Qualifiers: Viral hepatitis chronicity: chronic Hepatic coma status: without hepatic coma Qualified Code(s): B18.2 - Chronic viral hepatitis C (10) Nicotine dependence Status: Chronic Qualifiers: Nicotine product type: cigarettes Substance use status: uncomplicated Qualified Code(s): F17.210 - Nicotine dependence, cigarettes, uncomplicated - AMA Did Patient Leave Against Medical Advice: Yes (PATIENT DID NOT WISH TO STAY TO COMPLETE DETOX REGIMEN.)
[2017-04-13] MEDS ORDERED: chlordiazePOXIDE HCL 25 MG CAPSULE PO SCH (23:00)
[2017-04-14] MEDS ORDERED: METHADONE HCL 5 MG TABLET (FOR DETOX USE ONLY) PO SCH (10:00)
[2017-04-14] MEDS ORDERED: chlordiazePOXIDE 5 MG CAPSULE PO SCH (23:00)
[2017-04-15] MEDS ORDERED: chlordiazePOXIDE HCL 10 MG CAPSULE PO SCH (23:00)
[2017-04-16] MEDS ORDERED: METHADONE HCL 10 MG TABLET (FOR DETOX USE ONLY) PO SCH (10:00)
[2017-04-17] MEDS ORDERED: METHADONE HCL 5 MG TABLET (FOR DETOX USE ONLY) PO SCH (06:00)
== END 2017-04-13 13:24 | disposition left against medical advice (07) | DRG 770 ==
LOC: YASAS 11:33 → Y3N 17:35
PROVIDERS: ADMIT Internal Medicine; ATTEND Internal Medicine
PROC: HZ2ZZZZ Detoxification Services for Substance Abuse Treatment (ICD-10-PCS; principal; 2017-04-12)
DX: F11.23 Opioid dependence with withdrawal (principal); F10.230 Alcohol dependence with withdrawal, uncomplicated; F17.210 Nicotine dependence, cigarettes, uncomplicated; B18.2 Chronic viral hepatitis C; B19.10 Unspecified viral hepatitis B without hepatic coma; Z21 Asymptomatic human immunodeficiency virus [HIV] infection status; K74.60 Unspecified cirrhosis of liver; J45.20 Mild intermittent asthma, uncomplicated; R26.2 Difficulty in walking, not elsewhere classified; Z99.89 Dependence on other enabling machines and devices; Z91.013 Allergy to seafood
CPT/HCPCS: 36415; 80053; 81003; 81015; 85027; 86593; 93005; 93010

== ENCOUNTER 2017-09-06 11:38 | Inpatient (IN) | payer OTHER ==
[2017-09-06 12:02] VITALS: BMI 24.2
--- NOTE | 2017-09-06 13:52 | HP ---
CIWA Score - CIWA Score Nausea/Vomitin-No Nausea/No Vomiting Muscle Tremors: 4-Moderate,w/Arms Extend Anxiety: 4-Mod. Anxious/Guarded Agitation: 4-Moderately Restless Paroxysmal Sweats: 4-Forehead w/Sweat Beads Orientation: 0-Oriented Tacttile Disturbances: 0-None Auditory Disturbances: 0-None Visual Disturbances: 0-None Headache: 0-None Present CIWA-Ar Total Score: 16 Admission ROS S - HPI Chief Complaint: Alcohol and xanax withdrawal. Allergies/Adverse Reactions: Allergies Allergy/AdvReac Type Severity Reaction Status Date / Time milk [Milk] Allergy Severe Rash Verified 09/06/17 12:02 roast beef Allergy Severe Rash Uncoded 09/06/17 12:02 SEAFOOD Allergy Severe Rash Uncoded 09/06/17 12:02 NKDA Allergy Uncoded 09/06/17 12:02 History of Present Illness: 47 yom w/ hx alcohol use since age 10. Drinks 2 ltrs vodka and 12- 24 oz beers daily. States has seizures when stops drinking. last seizure 6 months ago. Denies blackouts. Hx. opiate use disorder since age 14. Is on a MMTP and also continues to abuse heroin IV. Last heroin use today. Was reinstated onto MMTP on 09/05 and is on a methadone build-up schedule. Has been using Xanax intermittently since age 44. Now on approx 4 mg QOD. Here because you want to stop and the xanax. Hx asthma and HIV infection. Denies chest pain or cardiac issues. - Ebola screening Have you traveled outside of the country in the last 21 days: No (N) Have you had contact with anyone from an Ebola affected area: No Have you been sick,other than usual withdrawal symptoms: No Do you have a fever: No - Review of Systems Constitutional: Chills, Changes in sleep (Difficulty falling asleep) EENT: reports: Nose Congestion, Dental Problems (Cracked and missing teeth. Denies difficulty chewing or swallowing.) Respiratory: reports: Other (Hx asthma since childhood. Last attack evidenced by wheezing 6 months ago.) Cardiac: reports: No Symptoms Reported GI: reports: No Symptoms Reported : reports: No Symptoms Reported Musculoskeletal: reports: Other (States bone achyness r/t withdrawal.) Integumentary: reports: No Symptoms Reported Neuro: reports: Tremors (r/t withdrawal) Endocrine: reports: No Symptoms Reported Hematology: reports: No Symptoms Reported Psychiatric: reports: Orientated x3, Agitated, Anxious Patient History - Patient Medical History Hx Anemia: No Hx Asthma: Yes (denies xrecent exacerbation) Hx Chronic Obstructive Pulmonary Disease (COPD): No Hx Cancer: No Hx Cardiac Disorders: No Hx Congestive Heart Failure: No Hx Hypertension: No Hx Hypercholesterolemia: No Hx Pacemaker: No HX Cerebrovascular Accident: No Hx Seizures: Yes (alcohol related-last episode was in 06/2017) Hx Dementia: No Hx Diabetes: No Hx Gastrointestinal Disorders: No Hx Liver Disease: Yes (Hep C, Diagnosed 1990, Cirrhosis . No medication Tx.) Hx Genitourinary Disorders: No Hx Sexually Transmitted Disorders: No Hx Renal Disease (ESRD): No Hx Thyroid Disease: No Hx Human Immunodeficiency Virus (HIV): Yes (On [employer] and Tivac[employer]. Last tok on 09/04) Hx Hepatitis C: Yes (HEP B AND HEP C, NO TREATMENT YET.) Hx Depression: Yes (Denies suicide or violent ideation) Hx Suicide Attempt: No Hx Bipolar Disorder: No Hx Schizophrenia: No - Patient Surgical History Past Surgical History: Yes Hx Neurologic Surgery: No Hx Cataract Extraction: No Hx Cardiac Surgery: No Hx Lung Surgery: No Hx Breast Surgery: No Hx Breast Biopsy: No Hx Abdominal Surgery: No Hx Appendectomy: No Hx Cholecystectomy: No Hx Genitourinary Surgery: No Hx Section: No Hx Orthopedic Surgery: Yes (RIGHT KNEE PATELLAR FX AND TENDON REPAIR 02/2017) Anesthesia Reaction: No - PPD History Previous Implant?: Yes Documented Results: Negative w/proof Implanted On Prior [facility] Admission?: Yes Date: 03/12/16 Results: 0 mm PPD to be Administered?: Yes - Smoking Cessation Smoking history: Current every day smoker Have you smoked in the past 12 months: Yes Aproximately how many cigarettes per day: 10 Cigars Per Day: 0 Hx Chewing Tobacco Use: No Initiated information on smoking cessation: Yes 'Breaking Loose' booklet given: 09/06/17 - Substance & Tx. History Hx Alcohol Use: Yes Hx Substance Use: Yes Substance Use Type: Alcohol, Heroin, Tranquilizers (Xanax) Hx Substance Use Treatment: Yes (On [facility]) - Substances Abused Heroin Route: Injection Frequency: Daily Amount used: 20 bags Age of first use: 14 Date of Last Use: 09/06/17 (last used at 7 am ) Alcohol-vodka/beer Route: Oral Frequency: Daily Amount used: 2 liters/24 - 24 oz beers daily Age of first use: 10 Date of Last Use: 09/06/17 (8 am) Xanax Route: Oral Frequency: 3-6 times per week Amount used: 4 mg. Age of first use: 44 Date of Last Use: 09/04/17 Family Disease History - Family Disease History Family Disease History: Diabetes: Brother (OPIOID DEPENDENCE; ), Other: Brother Admission Physical Exam S - Vital Signs Vital Signs: Vital Signs - 24 hr 09/06/17 12:01 Temperature 97.2 F L Pulse Rate 73 Respiratory 18 Rate Blood Pressure 135/81 - Physical General Appearance: Yes: Appropriately Dressed, Tremorous, Anxious HEENTM: Yes: EOMI, Hearing grossly Normal, Normal Voice, PATRICIA (Pupils dilated at 4 mm), Rhinorrhea Respiratory: Yes: Lungs Clear, Normal Breath Sounds, No Respiratory Distress Neck: Yes: No masses,lesions,Nodules, Supple Breast: Yes: Breast Exam Deferred Cardiology: Yes: Regular Rhythm, Regular Rate, S1, S2, Murmur (Denies chest pain. No dyspnea. No edema. Peripheral pulses (+)) Abdominal: Yes: Normal Bowel Sounds, Non Tender, Flat, Soft Genitourinary: Yes: Within Normal Limits Back: Yes: Normal Inspection Extremities: Yes: Normal Capillary Refill, Normal Range of Motion, Non-Tender, Tremors (upper arms w/ extension) Neurological: Yes: heating fixture tender II-XII NML intact, Fully Oriented, Motor Strength 5/5 Integumentary: Yes: Normal Color, Dry, Warm, Track Kelley (Old and new track kelley on arms and legs.) - Diagnostic (1) Alcohol dependence with uncomplicated withdrawal Current Visit: Yes Status: Acute (2) Opioid dependence on agonist therapy Current Visit: Yes Status: Chronic (3) Asthma Current Visit: Yes Status: Chronic Qualifiers: Asthma severity: mild Asthma persistence: intermittent Asthma complication type: uncomplicated Qualified Code(s): J45.20 - Mild intermittent asthma, uncomplicated (4) HIV (human immunodeficiency virus infection) Current Visit: Yes Status: Chronic (5) Nicotine dependence Current Visit: Yes Status: Chronic Qualifiers: Nicotine product type: cigarettes Substance use status: uncomplicated Qualified Code(s): F17.210 - Nicotine dependence, cigarettes, uncomplicated (6) Murmur, heart Current Visit: Yes Status: Chronic (7) Sedative, hypnotic or anxiolytic dependence with withdrawal, uncomplicated Current Visit: Yes Status: Acute Cleared for Admission [facility] - Detox or Rehab [facility] Level of Care: Medically Managed Detox Regimen/Protocol: Valium [facility] Breath Alcohol Content Breath Alcohol Content: 0.139 Urine Drug Screen - Results Drug Screen Negative: No Urine Drug Screen Results: OPI-Opiates, BZO-Benzodiazepines, MTD-Methadone
[2017-09-06] MEDS ORDERED: ALBUTEROL SO4 18 GM HFA INHALER IH PRN (14:14)
[2017-09-06] MEDS ORDERED: ACETAMINOPHEN 325 MG TABLET (FP) PO PRN (14:16)
[2017-09-06] MEDS ORDERED: hydrOXYzine PAMOATE 50 MG CAPSULE (FP) PO PRN (14:16)
[2017-09-06] MEDS ORDERED: guaiFENesin/D-METHORPHAN HB 10 ML UNIT-DOSE CUPS PO PRN (14:16)
[2017-09-06] MEDS ORDERED: MENTHOL/PHENOL 1 EACH UD MM PRN (14:16)
[2017-09-06] MEDS ORDERED: LOPERAMIDE HCL 2 MG CAPSULE PO PRN (14:16)
[2017-09-06] MEDS ORDERED: MAG HYDROX/AL HYDROX/SIMETH 30 ML UNIT-DOSE CUP PO PRN (14:16)
[2017-09-06] MEDS ORDERED: P-EPHED 60MG/TRIPROLIDI 2.5MG TABLET PO PRN (14:16)
[2017-09-06] MEDS ORDERED: MAGNESIUM CITRATE 300 ML BOTTLE PO PRN (14:16)
[2017-09-06] MEDS ORDERED: IBUPROFEN 400 MG TABLET (FP) PO PRN (14:16)
[2017-09-06] MEDS ORDERED: MAGNESIUM HYDROX 2400MG/30ML ORAL SUSPENSION 30 ML CUP PO PRN (14:16)
[2017-09-06] MEDS ORDERED: NICOTINE POLACRILEX 2 MG GUM BUC PRN (14:16)
[2017-09-06] MEDS ORDERED: diazePAM 5 MG TABLET PO ONE (14:40)
[2017-09-06] MEDS: EMTRICITABINE 200MG/TENOFOVIR 300MG PO SCH (15:50)
[2017-09-06] MEDS: DOLUTEGRAVIR SODIUM 50 MG TABLET PO SCH (15:50)
--- NOTE | 2017-09-06 15:57 | CONSULT ---
[facility] Psychiatric Consult - Data Date of interview: 09/06/17 Admission source: [facility] Identifying data: Patient is a 47 year old man, father of five, unemployed, domiciled, and is supported by public assistance. This is one of multiple admissions for patient. Pt. admitted to for alcohol and benzodiazepine dependence. Substance Abuse History: - Smoking Cessation. Smoking history: Current every day smoker. Have you smoked in the past 12 months: Yes. Aproximately how many cigarettes per day: 10. Cigars Per Day: 0. Hx Chewing Tobacco Use: No. Initiated information on smoking cessation: Yes. 'Breaking Loose' booklet given : 09/06/17. - Substance & Tx. History. Hx Alcohol Use: Yes. Hx Substance Use : Yes. Substance Use Type: Alcohol, Heroin, Tranquilizers (Xanax). Hx Substance Use Treatment: Yes (On [facility]). - Substances Abused. Heroin. Route: Injection. Frequency: Daily. Amount used: 20 bags. Age of first use: 14. Date of Last Use: 09/06/17 (last used at 7 am ). Alcohol-vodka/beer. Route: Oral. Frequency: Daily. Amount used: 2 liters/ 24 - 24 oz beers daily. Age of first use: 10. Date of Last Use: 09/06/17 (8 am ). Xanax. Route: Oral. Frequency: 3-6 times per week. Amount used: 4 mg. Age of first use: 44. Date of Last Use: 09/04/17 Medical History: Asthma, HIV, Hep C, Cirrhosis of the liver, Right knee patellar fx and tendon repair, Seizures (alcohol related-last episode was in 2017) Psychiatric History: Pt. denies h/o psychiatric hospitalization, outpatient care , and suicide attempt. Pt. reports poor sleep. Physical/Sexual Abuse/Trauma History: Denies. Mental Status Exam - Mental Status Exam Alert and Oriented to: Time, Place, Person Cognitive Function: Good Patient Appearance: Well Groomed Mood: Hopeful Affect: Mood Congruent Patient Behavior: Appropriate, Cooperative Speech Pattern: Appropriate Voice Loudness: Normal Thought Process: Intact, Goal Oriented Thought Disorder: Not Present Hallucinations: Denies Suicidal Ideation: Denies Homicidal Ideation: Denies Insight/Judgement: Poor Sleep: Poorly Appetite: Fair Muscle strength/Tone: Normal Gait/Station: Other (Ambulates with a cane.) Psychiatric Findings - Problem List ([place] 1, 2,3) (1) Alcohol dependence with uncomplicated withdrawal Current Visit: Yes Status: Acute (2) Sedative, hypnotic or anxiolytic dependence with withdrawal, uncomplicated Current Visit: Yes Status: Acute (3) Asthma Current Visit: Yes Status: Chronic Qualifiers: Asthma severity: mild Asthma persistence: intermittent Asthma complication type: uncomplicated Qualified Code(s): J45.20 - Mild intermittent asthma, uncomplicated (4) HIV (human immunodeficiency virus infection) Current Visit: Yes Status: Chronic (5) Murmur, heart Current Visit: Yes Status: Chronic (6) Nicotine dependence Current Visit: Yes Status: Chronic Qualifiers: Nicotine product type: cigarettes Substance use status: uncomplicated Qualified Code(s): F17.210 - Nicotine dependence, cigarettes, uncomplicated (7) Opioid dependence on agonist therapy Current Visit: Yes Status: Chronic (8) Cirrhosis of liver Current Visit: No Status: Chronic Qualifiers: Hepatic cirrhosis type: unspecified hepatic cirrhosis Ascites presence: without ascites Qualified Code(s): K74.60 - Unspecified cirrhosis of liver (9) Hepatitis C Current Visit: Yes Status: Chronic Qualifiers: Viral hepatitis chronicity: chronic Hepatic coma status: without hepatic coma Qualified Code(s): B18.2 - Chronic viral hepatitis C (10) Substance-induced sleep disorder Current Visit: Yes Status: Acute - Initial Treatment Plan Initial Treatment Plan: Psychoeducation provided. Detoxification provided. Ambien 10mg qhs prn ordered. Patient reports favorable effect from previously accepting ambien. Benefits and side effects discussed. Patient made aware of the risk of parasomnia when accepting ambien. Verbal consent given.
[2017-09-06] MEDS ORDERED: METHADONE HCL 10 MG TABLET PO ONE (16:18)
[2017-09-06] MEDS ORDERED: METHADONE 40 MG, METHADONE 10 MG PO ONE (16:20)
[2017-09-06] MEDS ORDERED: METHADONE HCL 10 MG TABLET ONE (17:01)
[2017-09-06] MEDS ORDERED: METHADONE HCL 40 MG DISPERSABLE TABLET ONE (17:02)
[2017-09-06 19:52] LABS: URINE APPEARANCE CLEAR; URINE BILIRUBIN NEGATIVE (<2.0 mg/dL); URINE COLOR STRAW; URINE GLUCOSE (UA) NEGATIVE (NEGATIVE); URINE KETONE NEGATIVE (NEGATIVE); URINE LEUK ESTERASE NEGATIVE (NEGATIVE); URINE NITRITE NEGATIVE (NEGATIVE); URINE PROTEIN NEGATIVE (NEGATIVE); URINE UROBILINOGEN NEGATIVE mg/dL (0.2-1.0)
[2017-09-06 20:00] LABS: EPI CELLS RARE /HPF (FEW)
[2017-09-06] MEDS ORDERED: MELATONIN 5 MG TABLETS PO PRN (22:00)
[2017-09-06] MEDS: THIAMINE HCL 100 MG TABLET (FP) PO SCH (22:16)
[2017-09-06] MEDS: diazePAM 5 MG TABLET PO SCH (22:16)
[2017-09-06] MEDS: CYCLOBENZAPRINE HCL 5 MG TABLET PO SCH (22:16)
[2017-09-06] MEDS: ZOLPIDEM TARTRATE 10 MG TABLET (PARK CARE ONLY) PO PRN (22:18)
[2017-09-07] MEDS ORDERED: METHADONE HCL 10 MG TABLET ONE (04:33)
[2017-09-07] MEDS ORDERED: METHADONE HCL 40 MG DISPERSABLE TABLET ONE (04:34)
[2017-09-07] MEDS: diazePAM 5 MG TABLET PO SCH ×3 (05:39→22:30)
[2017-09-07] MEDS: CYCLOBENZAPRINE HCL 5 MG TABLET PO SCH ×3 (05:40→22:30)
[2017-09-07] MEDS ORDERED: METHADONE HCL 10 MG TABLET PO ONE (06:00)
[2017-09-07] MEDS ORDERED: METHADONE 40 MG, METHADONE 20 MG PO ONE (06:00)
[2017-09-07] MEDS: PRENATAL VITAMINS W/ FOLIC ACID TABLET (FP) PO SCH (10:18)
[2017-09-07] MEDS: EMTRICITABINE 200MG/TENOFOVIR 300MG PO SCH (10:19)
[2017-09-07] MEDS: DOLUTEGRAVIR SODIUM 50 MG TABLET PO SCH (10:19)
[2017-09-07] MEDS: NICOTINE 14 MG/24 HOURS TOPICAL PATCH TD SCH (10:19)
[2017-09-07] MEDS: diazePAM 5 MG TABLET PO PRN ×2 (10:19→19:24)
[2017-09-07 10:34] LABS: HEMATOCRIT 36.4 % (35.4-49); HEMOGLOBIN 12.2 GM/dL (11.7-16.9); MCH 31.4 pg (25.7-33.7); MCHC 33.7 g/dl (32.0-35.9); MEAN CELL VOLUME 93.3 fl (80-96); MEAN PLT VOLUME 8.7 fl (7.5-11.1); PLATELET COUNT 151 K/MM3 (134-434); RDW 15.9 % (11.9-15.9); WHITE BLOOD COUNT 4.4 K/mm3 (4.0-10.0)
[2017-09-07 11:00] LABS: ALBUMIN 3.4 g/dl (3.4-5.0); ANION GAP 6 (8-16); BILIRUBIN,TOTAL 0.4 mg/dL (0.2-1.0); BLOOD UREA NITROGEN 10 mg/dL (7-18); CALCIUM 8.2 mg/dL (8.5-10.1); CHLORIDE 103 mmol/L (98-107); CO2 27 mmol/L (21-32); CREATININE 0.6 mg/dL (0.7-1.3); GLUCOSE,RANDOM 78 mg/dL (74-106); POTASSIUM 3.8 mmol/L (3.5-5.1); SGOT/AST 53 U/L (15-37); SGPT/ALT 30 U/L (12-78); SODIUM 136 mmol/L (136-145)
[2017-09-07 11:02] LABS: ALK PHOS 90 U/L (45-117)
[2017-09-07 11:04] LABS: TOT PROT 10.6 g/dl (6.4-8.2)
--- NOTE | 2017-09-07 17:09 | PN ---
[facility] CIWA - CIWA Score Nausea/Vomitin-No Nausea/No Vomiting Muscle Tremors: 3 Anxiety: 3 Agitation: 3 Paroxysmal Sweats: 3 Orientation: 0-Oriented Tacttile Disturbances: 2-Mild Itch/Numbness/Burn Auditory Disturbances: 0-None Visual Disturbances: 2-Mild Sensitivity Headache: 0-None Present CIWA-Ar Total Score: 16 BHS Progress Note (SOAP) Subjective: Body Aches, Sweating, Interrupted Sleep, Tremors. Objective: PATIENT A & O X 3, OBSERVED AMBULATING ON UNIT. NO ACUTE DISTRESS. 09/07/17 17:07 Vital Signs Temperature 98.1 F 09/07/17 14:24 Pulse Rate 72 09/07/17 14:24 Respiratory Rate 16 09/07/17 14:24 Blood Pressure 133/82 09/07/17 14:24 O2 Sat by Pulse Oximetry (%) Laboratory Tests 09/06/17 09/07/17 09/07/17 16:09 06:00 06:00 WBC 4.4 RBC 3.90 L Hgb 12.2 Hct 36.4 MCV 93.3 MCH 31.4 MCHC 33.7 RDW 15.9 Plt Count 151 D MPV 8.7 Sodium 136 Potassium 3.8 Chloride 103 Carbon Dioxide 27 Anion Gap 6 L BUN 10 Creatinine 0.6 L Creat Clearance w eGFR > 60 Random Glucose 78 D Calcium 8.2 L Total Bilirubin 0.4 AST 53 H D ALT 30 Alkaline Phosphatase 90 Total Protein 10.6 H Albumin 3.4 Urine Color Straw Urine Appearance Clear Urine pH 6.0 Ur Specific [place] 1.005 Urine Protein Negative Urine Glucose (UA) Negative Urine Ketones Negative Urine Blood 2+ H Urine Nitrite Negative Urine Bilirubin Negative Urine Urobilinogen Negative Ur Leukocyte Esterase Negative Urine WBC (Auto) <1 Urine RBC (Auto) 1 Ur Epithelial Cells Rare LABS NOTED. RPR RESULT PENDING. 09/07/17 17:10 Assessment: 09/07/17 17:07 WITHDRAWAL SYMPTOMS. Plan: CONTINUE DETOX. INCREASE DAILY PO FLUID INTAKE. PRN FLEXERIL FOR BODY ACHES.
[2017-09-07] MEDS: ZOLPIDEM TARTRATE 10 MG TABLET (PARK CARE ONLY) PO PRN (22:30)
[2017-09-07] MEDS: THIAMINE HCL 100 MG TABLET (FP) PO SCH (22:30)
[2017-09-08] MEDS ORDERED: METHADONE HCL 40 MG DISPERSABLE TABLET ONE (04:49)
[2017-09-08] MEDS ORDERED: METHADONE HCL 10 MG TABLET ONE (04:49)
[2017-09-08] MEDS: diazePAM 5 MG TABLET PO PRN ×2 (05:21→17:03)
[2017-09-08] MEDS: METHADONE 40 MG, METHADONE 30 MG PO SCH (05:21)
[2017-09-08] MEDS: CYCLOBENZAPRINE HCL 5 MG TABLET PO SCH ×3 (05:21→22:07)
[2017-09-08] MEDS ORDERED: METHADONE HCL 40 MG DISPERSABLE TABLET PO SCH (06:00)
[2017-09-08] MEDS: DOLUTEGRAVIR SODIUM 50 MG TABLET PO SCH (10:03)
[2017-09-08] MEDS: PRENATAL VITAMINS W/ FOLIC ACID TABLET (FP) PO SCH (10:03)
[2017-09-08] MEDS: diazePAM 5 MG TABLET PO SCH ×2 (10:03→22:08)
[2017-09-08] MEDS: EMTRICITABINE 200MG/TENOFOVIR 300MG PO SCH (10:04)
[2017-09-08] MEDS: NICOTINE 14 MG/24 HOURS TOPICAL PATCH TD SCH (10:04)
--- NOTE | 2017-09-08 13:18 | PN ---
S CIWA - CIWA Score Nausea/Vomitin-No Nausea/No Vomiting Muscle Tremors: 4-Moderate,w/Arms Extend Anxiety: 4-Mod. Anxious/Guarded Agitation: 4-Moderately Restless Paroxysmal Sweats: 1-Minimal Palms Moist Orientation: 0-Oriented Tacttile Disturbances: 0-None Auditory Disturbances: 0-None Visual Disturbances: 0-None Headache: 0-None Present CIWA-Ar Total Score: 13 BHS Progress Note (SOAP) Subjective: ANXIETY, IRRITABILITY,SWEATS,NAUSEA, INTERMITTENT SLEEP. Objective: 09/08/17 13:17 Vital Signs 09/08/17 09/08/17 06:19 09:39 Temperature 98.1 F 97.4 F L Pulse Rate 64 62 Respiratory 18 18 Rate Blood Pressure 133/73 105/70 Laboratory Tests 09/06/17 09/07/17 09/07/17 16:09 06:00 06:00 WBC 4.4 RBC 3.90 L Hgb 12.2 Hct 36.4 MCV 93.3 MCH 31.4 MCHC 33.7 RDW 15.9 Plt Count 151 D MPV 8.7 Sodium 136 Potassium 3.8 Chloride 103 Carbon Dioxide 27 Anion Gap 6 L BUN 10 Creatinine 0.6 L Creat Clearance w eGFR > 60 Random Glucose 78 D Calcium 8.2 L Total Bilirubin 0.4 AST 53 H D ALT 30 Alkaline Phosphatase 90 Total Protein 10.6 H Albumin 3.4 Urine Color Straw Urine Appearance Clear Urine pH 6.0 Ur Specific [place] 1.005 Urine Protein Negative Urine Glucose (UA) Negative Urine Ketones Negative Urine Blood 2+ H Urine Nitrite Negative Urine Bilirubin Negative Urine Urobilinogen Negative Ur Leukocyte Esterase Negative Urine WBC (Auto) <1 Urine RBC (Auto) 1 Ur Epithelial Cells Rare RPR Titer 09/07/17 06:00 WBC RBC Hgb Hct MCV MCH MCHC RDW Plt Count MPV Sodium Potassium Chloride Carbon Dioxide Anion Gap BUN Creatinine Creat Clearance w eGFR Random Glucose Calcium Total Bilirubin AST ALT Alkaline Phosphatase Total Protein Albumin Urine Color Urine Appearance Urine pH Ur Specific [place] Urine Protein Urine Glucose (UA) Urine Ketones Urine Blood Urine Nitrite Urine Bilirubin Urine Urobilinogen Ur Leukocyte Esterase Urine WBC (Auto) Urine RBC (Auto) Ur Epithelial Cells RPR Titer Nonreactive Assessment: 09/08/17 13:17 WITHDRAWAL SX Plan: CONTINUE DETOX
[2017-09-08] MEDS: THIAMINE HCL 100 MG TABLET (FP) PO SCH (22:07)
[2017-09-08] MEDS: ZOLPIDEM TARTRATE 10 MG TABLET (PARK CARE ONLY) PO PRN (22:08)
[2017-09-09] MEDS: diazePAM 5 MG TABLET PO PRN ×2 (01:14→05:35)
[2017-09-09] MEDS ORDERED: METHADONE HCL 40 MG DISPERSABLE TABLET ONE (04:10)
[2017-09-09] MEDS ORDERED: METHADONE HCL 10 MG TABLET ONE (04:10)
[2017-09-09] MEDS: CYCLOBENZAPRINE HCL 5 MG TABLET PO SCH ×3 (05:35→22:12)
[2017-09-09] MEDS: METHADONE 40 MG, METHADONE 30 MG PO SCH (05:35)
[2017-09-09] MEDS: EMTRICITABINE 200MG/TENOFOVIR 300MG PO SCH (10:16)
[2017-09-09] MEDS: diazePAM 5 MG TABLET PO SCH ×2 (10:16→22:12)
[2017-09-09] MEDS: PRENATAL VITAMINS W/ FOLIC ACID TABLET (FP) PO SCH (10:16)
[2017-09-09] MEDS: NICOTINE 14 MG/24 HOURS TOPICAL PATCH TD SCH (10:16)
[2017-09-09] MEDS: DOLUTEGRAVIR SODIUM 50 MG TABLET PO SCH (10:16)
--- NOTE | 2017-09-09 13:30 | PN ---
BHS Progress Note (SOAP) Subjective: Sleep disturbance Shakes Sweats Objective: 09/09/17 13:28 A & O x 3 No acute distress noted Requesting med refills Vital Signs Temperature 96.5 F L 09/09/17 13:06 Pulse Rate 70 09/09/17 13:06 Respiratory Rate 18 09/09/17 13:06 Blood Pressure 91/66 09/09/17 13:06 O2 Sat by Pulse Oximetry (%) Assessment: 09/09/17 13:28 Withdrawal sx Plan: Continue detox For d/c tomorrow Prescriptions sent to pt's pharmacy
[2017-09-09] MEDS: ZOLPIDEM TARTRATE 10 MG TABLET (PARK CARE ONLY) PO PRN (21:19)
[2017-09-09 21:28] VITALS: TEMP 97
[2017-09-09] MEDS: THIAMINE HCL 100 MG TABLET (FP) PO SCH (22:11)
--- NOTE | 2017-09-09 22:14 | EKG ---
Test Reason : Blood Pressure : / mmHG Vent. Rate : 070 BPM Atrial Rate : 070 BPM P-R Int : 146 ms QRS Dur : 096 ms QT Int : 404 ms P-R-T Axes : 042 017 042 degrees QTc Int : 436 ms NORMAL SINUS RHYTHM MINIMAL VOLTAGE CRITERIA FOR LVH, MAY BE NORMAL VARIANT BORDERLINE ECG WHEN COMPARED WITH ECG OF 13-APR-2017 07:54, PREMATURE SUPRAVENTRICULAR COMPLEXES ARE NO LONGER PRESENT Confirmed by CHINA PAREDES, PATRICK ([id number]) on 09/09/2017 10:14:42 PM Referred By: Confirmed By:PATRICK ATKINSON MD
[2017-09-10] MEDS ORDERED: METHADONE HCL 10 MG TABLET ONE (04:24)
[2017-09-10] MEDS ORDERED: METHADONE HCL 40 MG DISPERSABLE TABLET ONE (04:24)
[2017-09-10] MEDS: CYCLOBENZAPRINE HCL 5 MG TABLET PO SCH (05:14)
[2017-09-10] MEDS: METHADONE 40 MG, METHADONE 30 MG PO SCH (05:14)
[2017-09-10 06:21] VITALS: BP 102/73; PULSE 73
[2017-09-10] MEDS ORDERED: diazePAM 5 MG TABLET PO SCH (10:00)
--- NOTE | 2017-09-10 12:14 | PN ---
BHS Progress Note (SOAP) Subjective: Patient denies current Detox symptoms and reports that he feels well overall. Objective: PATIENT A & O X 3, OBSERVED AMBULATING ON UNIT. NO ACUTE DISTRESS. 09/10/17 12:13 Vital Signs Temperature 97.0 F L 09/10/17 06:20 Pulse Rate 73 09/10/17 06:20 Respiratory Rate 18 09/10/17 06:20 Blood Pressure 102/73 09/10/17 06:20 O2 Sat by Pulse Oximetry (%) Laboratory Tests 09/06/17 09/07/17 09/07/17 16:09 06:00 06:00 WBC 4.4 RBC 3.90 L Hgb 12.2 Hct 36.4 MCV 93.3 MCH 31.4 MCHC 33.7 RDW 15.9 Plt Count 151 D MPV 8.7 Sodium 136 Potassium 3.8 Chloride 103 Carbon Dioxide 27 Anion Gap 6 L BUN 10 Creatinine 0.6 L Creat Clearance w eGFR > 60 Random Glucose 78 D Calcium 8.2 L Total Bilirubin 0.4 AST 53 H D ALT 30 Alkaline Phosphatase 90 Total Protein 10.6 H Albumin 3.4 Urine Color Straw Urine Appearance Clear Urine pH 6.0 Ur Specific [place] 1.005 Urine Protein Negative Urine Glucose (UA) Negative Urine Ketones Negative Urine Blood 2+ H Urine Nitrite Negative Urine Bilirubin Negative Urine Urobilinogen Negative Ur Leukocyte Esterase Negative Urine WBC (Auto) <1 Urine RBC (Auto) 1 Ur Epithelial Cells Rare RPR Titer 09/07/17 06:00 WBC RBC Hgb Hct MCV MCH MCHC RDW Plt Count MPV Sodium Potassium Chloride Carbon Dioxide Anion Gap BUN Creatinine Creat Clearance w eGFR Random Glucose Calcium Total Bilirubin AST ALT Alkaline Phosphatase Total Protein Albumin Urine Color Urine Appearance Urine pH Ur Specific [place] Urine Protein Urine Glucose (UA) Urine Ketones Urine Blood Urine Nitrite Urine Bilirubin Urine Urobilinogen Ur Leukocyte Esterase Urine WBC (Auto) Urine RBC (Auto) Ur Epithelial Cells RPR Titer Nonreactive LABS NOTED. Assessment: 09/10/17 12:13 COMPLETION OF DETOX REGIMEN. Plan: PATIENT SCHEDULED FOR DISCHARGE FROM DETOX UNIT TODAY.
--- NOTE | 2017-09-10 12:20 | DS ---
[facility] Detox Discharge Summary Admission Date: 09/06/17 Discharge Date: 09/10/17 - History Present History: Alcohol Dependence, Opioid Dependence, Sedative Dependence, MMTP Additional Comments: PATIENT RETURNING TO START MMTP / OUTPATIENT SUBSTANCE USE TREATMENT PROGRAM ( Majo VIZCARRA) FOR AFTERCARE. PATIENT WAS DISCHARGED FROM DETOX UNIT IN STABLE MEDICAL CONDITION. Pertinent Past History: Asthma, History of HIV +, History of Heart Murmur, MMTP, History of Seizure ( due to ETOH withdrawal), Nicotine Dependence, Depression, History of Hep C, History of Hep B, History of Liver Cirrhosis. - Physical Exam Results Vital Signs: Vital Signs Temperature 97.0 F L 09/10/17 06:20 Pulse Rate 73 09/10/17 06:20 Respiratory Rate 18 09/10/17 06:20 Blood Pressure 102/73 09/10/17 06:20 O2 Sat by Pulse Oximetry (%) Pertinent Admission Physical Exam Findings: WITHDRAWAL SYMPTOMS. Laboratory Tests 09/06/17 09/07/17 09/07/17 16:09 06:00 06:00 WBC 4.4 RBC 3.90 L Hgb 12.2 Hct 36.4 MCV 93.3 MCH 31.4 MCHC 33.7 RDW 15.9 Plt Count 151 D MPV 8.7 Sodium 136 Potassium 3.8 Chloride 103 Carbon Dioxide 27 Anion Gap 6 L BUN 10 Creatinine 0.6 L Creat Clearance w eGFR > 60 Random Glucose 78 D Calcium 8.2 L Total Bilirubin 0.4 AST 53 H D ALT 30 Alkaline Phosphatase 90 Total Protein 10.6 H Albumin 3.4 Urine Color Straw Urine Appearance Clear Urine pH 6.0 Ur Specific [place] 1.005 Urine Protein Negative Urine Glucose (UA) Negative Urine Ketones Negative Urine Blood 2+ H Urine Nitrite Negative Urine Bilirubin Negative Urine Urobilinogen Negative Ur Leukocyte Esterase Negative Urine WBC (Auto) <1 Urine RBC (Auto) 1 Ur Epithelial Cells Rare RPR Titer 09/07/17 06:00 WBC RBC Hgb Hct MCV MCH MCHC RDW Plt Count MPV Sodium Potassium Chloride Carbon Dioxide Anion Gap BUN Creatinine Creat Clearance w eGFR Random Glucose Calcium Total Bilirubin AST ALT Alkaline Phosphatase Total Protein Albumin Urine Color Urine Appearance Urine pH Ur Specific [place] Urine Protein Urine Glucose (UA) Urine Ketones Urine Blood Urine Nitrite Urine Bilirubin Urine Urobilinogen Ur Leukocyte Esterase Urine WBC (Auto) Urine RBC (Auto) Ur Epithelial Cells RPR Titer Nonreactive LABS NOTED. - Treatment Hospital Course: Detox Protocol Followed, Detoxed Safely, Responded well, Discharged Condition Good Patient has Accepted a Rehab Referral to: PT RETURNING TO START MMTP / OP TREATMENT PROGRAM (Majo VIZCARRA). - Medication Discharge Medications: Ambulatory Orders Albuterol Sulfate Inhaler - [Ventolin HFA Inhaler -] 2 inh IH Q4H PRN #1 inhaler 09/09/17 Dolutegravir Sodium [Tivicay] 50 mg PO DAILY #30 tablet 09/09/17 Emtricitabine/Tenofovir [Truvada -] 1 tab PO DAILY #30 tablet 09/09/17 - Diagnosis (1) Alcohol dependence with uncomplicated withdrawal Status: Acute (2) Sedative, hypnotic or anxiolytic dependence with withdrawal, uncomplicated Status: Acute (3) Murmur, heart Status: Chronic (4) Opioid dependence on agonist therapy Status: Chronic (5) Asthma Status: Chronic Qualifiers: Asthma severity: mild Asthma persistence: intermittent Asthma complication type: uncomplicated Qualified Code(s): J45.20 - Mild intermittent asthma, uncomplicated (6) HIV (human immunodeficiency virus infection) Status: Chronic (7) Nicotine dependence Status: Acute Qualifiers: Nicotine product type: cigarettes Substance use status: in withdrawal Qualified Code(s): F17.213 - Nicotine dependence, cigarettes, with withdrawal (8) Substance-induced sleep disorder Status: Acute (9) Methadone maintenance therapy patient Status: Chronic (10) Hepatitis C Status: Chronic Qualifiers: Viral hepatitis chronicity: chronic Hepatic coma status: without hepatic coma Qualified Code(s): B18.2 - Chronic viral hepatitis C - AMA Did Patient Leave Against Medical Advice: No
== END 2017-09-10 09:19 | disposition home or self-care (01) | DRG 775 ==
LOC: YASAS 11:38 → Y3N 14:22
PROVIDERS: ADMIT Family Medicine Addiction Medicine; ATTEND Family Medicine Addiction Medicine
PROC: HZ2ZZZZ Detoxification Services for Substance Abuse Treatment (ICD-10-PCS; principal; 2017-09-06)
DX: F13.230 Sedative, hypnotic or anxiolytic dependence with withdrawal, uncomplicated (principal); F10.230 Alcohol dependence with withdrawal, uncomplicated; F17.210 Nicotine dependence, cigarettes, uncomplicated; F19.282 Other psychoactive substance dependence with psychoactive substance-induced sleep disorder; Z21 Asymptomatic human immunodeficiency virus [HIV] infection status; B18.2 Chronic viral hepatitis C; B19.10 Unspecified viral hepatitis B without hepatic coma; J45.20 Mild intermittent asthma, uncomplicated; R01.1 Cardiac murmur, unspecified; K74.60 Unspecified cirrhosis of liver; R63.4 Abnormal weight loss; Z68.24 Body mass index [BMI] 24.0-24.9, adult; R26.89 Other abnormalities of gait and mobility; Z99.89 Dependence on other enabling machines and devices; Z91.018 Allergy to other foods
CPT/HCPCS: 36415; 80053; 81003; 81015; 85027; 86593; 93005; 93010

== ENCOUNTER 2018-03-12 08:42 | Inpatient (IN) | payer OTHER ==
[2018-03-12 10:35] VITALS: BMI 25.1
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
[2018-03-12] MEDS ORDERED: MAGNESIUM HYDROX 2400MG/30ML ORAL SUSPENSION 30 ML CUP PO PRN (11:58)
[2018-03-12] MEDS ORDERED: ACETAMINOPHEN 325 MG TABLET (FP) PO PRN (11:58)
[2018-03-12] MEDS ORDERED: MAG HYDROX/AL HYDROX/SIMETH 30 ML UNIT-DOSE CUP PO PRN (11:58)
[2018-03-12] MEDS ORDERED: guaiFENesin/D-METHORPHAN HB 10 ML UNIT-DOSE CUPS PO PRN (11:58)
[2018-03-12] MEDS ORDERED: hydrOXYzine PAMOATE 25 MG CAPSULE (FP) PO PRN (11:58)
[2018-03-12] MEDS ORDERED: MENTHOL/PHENOL 1 EACH UD MM PRN (11:58)
[2018-03-12] MEDS ORDERED: P-EPHED 60MG/TRIPROLIDI 2.5MG TABLET PO PRN (11:58)
[2018-03-12] MEDS ORDERED: LOPERAMIDE HCL 2 MG CAPSULE PO PRN (11:58)
[2018-03-12] MEDS ORDERED: MAGNESIUM CITRATE 300 ML BOTTLE PO PRN (11:58)
[2018-03-12] MEDS ORDERED: ALBUTEROL SO4 8 GM HFA INHALER IH PRN (12:01)
[2018-03-12] MEDS ORDERED: METHADONE HCL 10 MG TABLET PO ONE (12:55)
[2018-03-12] MEDS: chlordiazePOXIDE HCL 25 MG CAPSULE PO PRN (13:57)
[2018-03-12] MEDS: NICOTINE 21 MG/24 HOURS TOPICAL PATCH TD SCH (14:00)
[2018-03-12] MEDS: chlordiazePOXIDE HCL 25 MG CAPSULE PO SCH ×2 (17:09→22:13)
[2018-03-12 17:43] LABS: URINE APPEARANCE CLEAR; URINE BILIRUBIN NEGATIVE (<2.0 mg/dL); URINE COLOR STRAW; URINE GLUCOSE (UA) NEGATIVE (NEGATIVE); URINE KETONE NEGATIVE (NEGATIVE); URINE LEUK ESTERASE NEGATIVE (NEGATIVE); URINE NITRITE NEGATIVE (NEGATIVE); URINE PROTEIN NEGATIVE (NEGATIVE); URINE UROBILINOGEN NEGATIVE mg/dL (0.2-1.0)
[2018-03-12] MEDS ORDERED: MELATONIN 5 MG TABLETS PO PRN (22:00)
[2018-03-12] MEDS: levETIRAcetam 500 MG TABLET (FP) PO SCH (22:13)
[2018-03-12] MEDS: SULFAMETHOXAZOLE/TRIMETHOPRIM 800MG/160MG D.S. TABLET PO SCH (22:13)
[2018-03-12] MEDS: THIAMINE HCL 100 MG TABLET (FP) PO SCH (22:13)
[2018-03-13] MEDS: IBUPROFEN 400 MG TABLET (FP) PO PRN (02:25)
[2018-03-13] MEDS: chlordiazePOXIDE HCL 25 MG CAPSULE PO PRN (02:25)
[2018-03-13] MEDS ORDERED: METHADONE HCL 40 MG DISPERSABLE TABLET ONE (05:07)
[2018-03-13] MEDS ORDERED: METHADONE HCL 10 MG TABLET ONE (05:07)
[2018-03-13] MEDS: METHADONE 40 MG, METHADONE 20 MG PO SCH (05:12)
[2018-03-13] MEDS: chlordiazePOXIDE HCL 25 MG CAPSULE PO SCH ×4 (05:12→22:03)
[2018-03-13] MEDS ORDERED: METHADONE HCL 10 MG TABLET PO SCH (06:00)
[2018-03-13] MEDS: PRENATAL VITAMINS W/ FOLIC ACID TABLET (FP) PO SCH (10:09)
[2018-03-13] MEDS: ASPIRIN COATED 81 MG TABLET.EC PO SCH (10:10)
[2018-03-13] MEDS: SULFAMETHOXAZOLE/TRIMETHOPRIM 800MG/160MG D.S. TABLET PO SCH ×2 (10:10→22:03)
[2018-03-13] MEDS: NICOTINE 21 MG/24 HOURS TOPICAL PATCH TD SCH (10:11)
[2018-03-13] MEDS: levETIRAcetam 500 MG TABLET (FP) PO SCH ×2 (10:11→23:16)
[2018-03-13 11:02] LABS: HEMATOCRIT 35.2 % (35.4-49); HEMOGLOBIN 12.5 GM/dL (11.7-16.9); MCH 32.6 pg (25.7-33.7); MCHC 35.3 g/dl (32.0-35.9); MEAN CELL VOLUME 92.2 fl (80-96); MEAN PLT VOLUME 9.7 fl (7.5-11.1); PLATELET COUNT 72 K/MM3 (134-434); RBC 3.82 M/mm3 (4.00-5.60); RDW 14.8 % (11.9-15.9); WHITE BLOOD COUNT 3.5 K/mm3 (4.0-10.0)
--- NOTE | 2018-03-13 11:18 | PN ---
S CIWA - CIWA Score Nausea/Vomitin-No Nausea/No Vomiting Muscle Tremors: 2 Anxiety: 3 Agitation: 2 Paroxysmal Sweats: 3 Orientation: 0-Oriented Tacttile Disturbances: 0-None Auditory Disturbances: 0-None Visual Disturbances: 0-None Headache: 0-None Present CIWA-Ar Total Score: 10 BHS Progress Note (SOAP) Subjective: PATIENT C/O NIGHT SWEATS, CHILLS, SHAKES AND ANXIETY. Objective: 03/13/18 11:15 Vital Signs Temperature 97.0 F L 03/13/18 09:00 Pulse Rate 65 03/13/18 09:00 Respiratory Rate 18 03/13/18 09:00 Blood Pressure 111/76 03/13/18 09:00 O2 Sat by Pulse Oximetry (%) Laboratory Tests 03/12/18 03/13/18 13:20 05:45 WBC 3.5 L RBC 3.82 L Hgb 12.5 Hct 35.2 L MCV 92.2 MCH 32.6 MCHC 35.3 RDW 14.8 Plt Count 72 L D MPV 9.7 D Urine Color Straw Urine Appearance Clear Urine pH 7.0 Ur Specific [place] 1.006 L Urine Protein Negative Urine Glucose (UA) Negative Urine Ketones Negative Urine Blood 2+ H Urine Nitrite Negative Urine Bilirubin Negative Urine Urobilinogen Negative Ur Leukocyte Esterase Negative Urine WBC (Auto) <1 Urine RBC (Auto) <1 PE: SKIN WARM AND DRY ALERT AND ORIENTED X 3 EXT FULL ROM, + MILD TREMORS FELT AMB AD LATESHA + MILD ANXIETY Assessment: 03/13/18 11:17 WITHDRAWAL SX Plan: CONTINUE DETOX ENCOURAGE ORAL FLUIDS CONTINUE TO MONITOR CLINICALLY
[2018-03-13 11:31] LABS: ALBUMIN 3.2 g/dl (3.4-5.0); ALK PHOS 78 U/L (45-117); ANION GAP 6 MMOL/L (8-16); BILIRUBIN,TOTAL 0.6 mg/dL (0.2-1); BLOOD UREA NITROGEN 10 mg/dL (7-18); CALCIUM 8.1 mg/dL (8.5-10.1); CHLORIDE 102 mmol/L (98-107); CO2 25 mmol/L (21-32); CREATININE 0.8 mg/dL (0.55-1.3); GLUCOSE,RANDOM 87 mg/dL (74-106); POTASSIUM 4.5 mmol/L (3.5-5.1); SGOT/AST 146 U/L (15-37); SGPT/ALT 70 U/L (13-61); SODIUM 132 mmol/L (136-145)
[2018-03-13 16:27] LABS: URINE APPEARANCE CLEAR; URINE BILIRUBIN NEGATIVE (<2.0 mg/dL); URINE COLOR YELLOW; URINE GLUCOSE (UA) NEGATIVE (NEGATIVE); URINE KETONE NEGATIVE (NEGATIVE); URINE LEUK ESTERASE NEGATIVE (NEGATIVE); URINE NITRITE NEGATIVE (NEGATIVE); URINE PROTEIN NEGATIVE (NEGATIVE); URINE UROBILINOGEN NEGATIVE mg/dL (0.2-1.0)
[2018-03-13 16:40] LABS: EPI CELLS RARE /HPF (FEW); URINE MUCUS RARE
[2018-03-13] MEDS: THIAMINE HCL 100 MG TABLET (FP) PO SCH (22:03)
[2018-03-14] MEDS: IBUPROFEN 400 MG TABLET (FP) PO PRN ×2 (00:52→20:32)
[2018-03-14] MEDS ORDERED: METHADONE HCL 10 MG TABLET ONE (03:35)
[2018-03-14] MEDS ORDERED: METHADONE HCL 40 MG DISPERSABLE TABLET ONE (03:36)
[2018-03-14] MEDS: METHADONE 40 MG, METHADONE 20 MG PO SCH (05:16)
[2018-03-14] MEDS: chlordiazePOXIDE HCL 25 MG CAPSULE PO SCH ×2 (05:16→10:10)
[2018-03-14] MEDS: SULFAMETHOXAZOLE/TRIMETHOPRIM 800MG/160MG D.S. TABLET PO SCH ×2 (10:09→22:16)
[2018-03-14] MEDS: ASPIRIN COATED 81 MG TABLET.EC PO SCH (10:09)
[2018-03-14] MEDS: PRENATAL VITAMINS W/ FOLIC ACID TABLET (FP) PO SCH (10:09)
[2018-03-14] MEDS: levETIRAcetam 500 MG TABLET (FP) PO SCH ×2 (10:09→22:15)
[2018-03-14] MEDS: NICOTINE 21 MG/24 HOURS TOPICAL PATCH TD SCH (10:10)
--- NOTE | 2018-03-14 10:18 | PN ---
[facility] CIWA - CIWA Score Nausea/Vomitin-No Nausea/No Vomiting Muscle Tremors: 1-None Visible, but [place] Anxiety: 2 Agitation: 3 Paroxysmal Sweats: No Perspiration Orientation: 0-Oriented Tacttile Disturbances: 3-Moderate Itch/Numb/Burn Auditory Disturbances: 0-None Visual Disturbances: 0-None Headache: 0-None Present CIWA-Ar Total Score: 9 BHS Progress Note (SOAP) Subjective: PATIENT C/O ITCHING BURNING TO PALMS OF HANDS, + REDNESS TO LEFT WRIST, ANXIETY/ RESTLESSNESS. Objective: 03/14/18 10:15 Vital Signs Temperature 98.6 F 03/14/18 09:26 Pulse Rate 66 03/14/18 09:26 Respiratory Rate 18 03/14/18 09:26 Blood Pressure 92/57 L 03/14/18 09:26 O2 Sat by Pulse Oximetry (%) Laboratory Tests 03/12/18 03/13/18 03/13/18 13:20 05:45 05:45 WBC 3.5 L RBC 3.82 L Hgb 12.5 Hct 35.2 L MCV 92.2 MCH 32.6 MCHC 35.3 RDW 14.8 Plt Count 72 L D MPV 9.7 D Sodium 132 L Potassium 4.5 Chloride 102 Carbon Dioxide 25 Anion Gap 6 L BUN 10 Creatinine 0.8 Creat Clearance w eGFR > 60 Random Glucose 87 Calcium 8.1 L Total Bilirubin 0.6 AST 146 H ALT 70 H Alkaline Phosphatase 78 Total Protein 11.0 H Albumin 3.2 L Urine Color Straw Urine Appearance Clear Urine pH 7.0 Ur Specific [place] 1.006 L Urine Protein Negative Urine Glucose (UA) Negative Urine Ketones Negative Urine Blood 2+ H Urine Nitrite Negative Urine Bilirubin Negative Urine Urobilinogen Negative Ur Leukocyte Esterase Negative Urine WBC (Auto) <1 Urine RBC (Auto) <1 Ur Epithelial Cells Urine Mucus RPR Titer 03/13/18 03/13/18 05:45 13:15 WBC RBC Hgb Hct MCV MCH MCHC RDW Plt Count MPV Sodium Potassium Chloride Carbon Dioxide Anion Gap BUN Creatinine Creat Clearance w eGFR Random Glucose Calcium Total Bilirubin AST ALT Alkaline Phosphatase Total Protein Albumin Urine Color Yellow Urine Appearance Clear Urine pH 7.0 Ur Specific [place] 1.009 L Urine Protein Negative Urine Glucose (UA) Negative Urine Ketones Negative Urine Blood 2+ H Urine Nitrite Negative Urine Bilirubin Negative Urine Urobilinogen Negative Ur Leukocyte Esterase Negative Urine WBC (Auto) <1 Urine RBC (Auto) 4 Ur Epithelial Cells Rare Urine Mucus Rare RPR Titer Nonreactive PE: ALERT AND ORIENTED X 3 SKIN WARM AND DRY, + LEFT WRIST ABSCESS-REDDENED, SWOLLEN AND TENDER EXT FULL ROM, AMB AD LATESHA WITH CANE +PACING IN HALLWAY Assessment: 03/14/18 10:18 WITHDRAWAL SX LEFT WRIST ABSCESS Plan: CONTINUE DETOX ENCOURAGE ORAL FLUIDS PATIENT ON BACTRIM DS 1 TAB BID FOR PROPHYLAXIS OF PCP WILL ADD CLINDAMYCIN TO TREATMENT FOR ABSCESS WARM COMPRESS TID AND PRN CONTINUE TO MONITOR
[2018-03-14] MEDS: CLINDAMYCIN HCL 150 MG CAPSULE (FP) PO SCH ×2 (17:28→23:41)
[2018-03-14] MEDS: chlordiazePOXIDE 5 MG CAPSULE PO SCH ×2 (17:28→22:15)
[2018-03-14] MEDS: THIAMINE HCL 100 MG TABLET (FP) PO SCH (22:16)
[2018-03-15] MEDS: IBUPROFEN 400 MG TABLET (FP) PO PRN (02:28)
[2018-03-15] MEDS ORDERED: METHADONE HCL 40 MG DISPERSABLE TABLET ONE (03:31)
[2018-03-15] MEDS ORDERED: METHADONE HCL 10 MG TABLET ONE (03:31)
[2018-03-15] MEDS: METHADONE 40 MG, METHADONE 20 MG PO SCH (05:35)
[2018-03-15] MEDS: CLINDAMYCIN HCL 150 MG CAPSULE (FP) PO SCH ×4 (05:35→23:13)
[2018-03-15] MEDS: chlordiazePOXIDE 5 MG CAPSULE PO SCH ×2 (05:36→10:03)
[2018-03-15] MEDS: levETIRAcetam 500 MG TABLET (FP) PO SCH ×2 (10:03→22:14)
[2018-03-15] MEDS: PRENATAL VITAMINS W/ FOLIC ACID TABLET (FP) PO SCH (10:03)
[2018-03-15] MEDS: SULFAMETHOXAZOLE/TRIMETHOPRIM 800MG/160MG D.S. TABLET PO SCH ×2 (10:03→22:14)
[2018-03-15] MEDS: ASPIRIN COATED 81 MG TABLET.EC PO SCH (10:03)
[2018-03-15] MEDS: NICOTINE 21 MG/24 HOURS TOPICAL PATCH TD SCH (10:05)
--- NOTE | 2018-03-15 15:01 | PN ---
[facility] Progress Note (SOAP) Subjective: Patient denies any current withdrawal symptoms. Objective: PATIENT A & O X 3, OBSERVED AMBULATING ON UNIT. IN NO ACUTE DISTRESS. 03/15/18 15:00 Vital Signs Temperature 97.3 F L 03/15/18 13:58 Pulse Rate 63 03/15/18 13:58 Respiratory Rate 18 03/15/18 13:58 Blood Pressure 92/59 L 03/15/18 13:58 O2 Sat by Pulse Oximetry (%) Laboratory Tests 03/12/18 03/13/18 03/13/18 13:20 05:45 05:45 WBC 3.5 L RBC 3.82 L Hgb 12.5 Hct 35.2 L MCV 92.2 MCH 32.6 MCHC 35.3 RDW 14.8 Plt Count 72 L D MPV 9.7 D Sodium 132 L Potassium 4.5 Chloride 102 Carbon Dioxide 25 Anion Gap 6 L BUN 10 Creatinine 0.8 Creat Clearance w eGFR > 60 Random Glucose 87 Calcium 8.1 L Total Bilirubin 0.6 AST 146 H ALT 70 H Alkaline Phosphatase 78 Total Protein 11.0 H Albumin 3.2 L Urine Color Straw Urine Appearance Clear Urine pH 7.0 Ur Specific [place] 1.006 L Urine Protein Negative Urine Glucose (UA) Negative Urine Ketones Negative Urine Blood 2+ H Urine Nitrite Negative Urine Bilirubin Negative Urine Urobilinogen Negative Ur Leukocyte Esterase Negative Urine WBC (Auto) <1 Urine RBC (Auto) <1 Ur Epithelial Cells Urine Mucus RPR Titer 03/13/18 03/13/18 05:45 13:15 WBC RBC Hgb Hct MCV MCH MCHC RDW Plt Count MPV Sodium Potassium Chloride Carbon Dioxide Anion Gap BUN Creatinine Creat Clearance w eGFR Random Glucose Calcium Total Bilirubin AST ALT Alkaline Phosphatase Total Protein Albumin Urine Color Yellow Urine Appearance Clear Urine pH 7.0 Ur Specific [place] 1.009 L Urine Protein Negative Urine Glucose (UA) Negative Urine Ketones Negative Urine Blood 2+ H Urine Nitrite Negative Urine Bilirubin Negative Urine Urobilinogen Negative Ur Leukocyte Esterase Negative Urine WBC (Auto) <1 Urine RBC (Auto) 4 Ur Epithelial Cells Rare Urine Mucus Rare RPR Titer Nonreactive LABS NOTED. Assessment: 03/15/18 15:00 WITHDRAWAL SYMPTOMS. Plan: CONTINUE DETOX. INCREASE DAILY PO FLUID INTAKE.
[2018-03-15] MEDS: chlordiazePOXIDE HCL 10 MG CAPSULE PO SCH ×2 (17:05→22:14)
[2018-03-15] MEDS ORDERED: CLINDAMYCIN HCL 150 MG CAPSULE (FP) PO ONE (17:45)
--- NOTE | 2018-03-15 17:51 | PN ---
[facility] Progress Note (SOAP) Subjective: c/o increase pain and swelling in (L) wrist. Objective: (L) wrist very warm to touch w/ abscess, induration and increased erythema. Wrist measurement is approximately 22 mm across at highest height. Radial pulses (+). Cap refill < 3 sec Vital Signs 03/15/18 03/15/18 13:58 17:40 Temperature 97.3 F L 97.4 F L Pulse Rate 63 66 Respiratory 18 16 Rate Blood Pressure 92/59 L 98/71 Assessment: Abscess and cellulitis (L) wrist area. Plan: Increase clindamycin to 300 mg PO Q6H. Ibuprofen 800 mg PO Q6H X 2 days for pain and anti-inflammatory properties. Protonix 20 mg PO BID x 2 days as prophylaxis while on continuous ibuprofen. Warm compresses (L) wrist Q2H while awake. If no improvement in am, consider referral to [place].
[2018-03-15] MEDS: IBUPROFEN 400 MG TABLET (FP) PO SCH ×2 (18:31→23:24)
[2018-03-15] MEDS ORDERED: PANTOPRAZOLE 20 MG TABLET (FP) PO SCH (22:00)
[2018-03-15] MEDS: THIAMINE HCL 100 MG TABLET (FP) PO SCH (22:14)
[2018-03-16] MEDS ORDERED: METHADONE HCL 10 MG TABLET ONE (04:44)
[2018-03-16] MEDS ORDERED: METHADONE HCL 40 MG DISPERSABLE TABLET ONE (04:44)
[2018-03-16] MEDS: chlordiazePOXIDE HCL 10 MG CAPSULE PO SCH (05:10)
[2018-03-16] MEDS: CLINDAMYCIN HCL 150 MG CAPSULE (FP) PO SCH (05:10)
[2018-03-16] MEDS: METHADONE 40 MG, METHADONE 20 MG PO SCH (05:10)
[2018-03-16] MEDS: IBUPROFEN 400 MG TABLET (FP) PO SCH (05:44)
[2018-03-16 06:15] VITALS: BP 110/70; PULSE 58; TEMP 96.5
--- NOTE | 2018-03-16 17:27 | DS ---
[facility] Detox Discharge Summary Admission Date: 03/12/18 Discharge Date: 03/16/18 - History Present History: Alcohol Dependence, Opioid Dependence, MMTP Additional Comments: Patient completed detox successfully. Patient is A, A, Ox3, in nad, ambulatory. Instructed to follow up with PCP within 1-2 weeks. Pertinent Past History: Asthma Cirrhosis of liver Hepatitis C HIV - Physical Exam Results Vital Signs: Vital Signs Temperature 96.5 F L 03/16/18 06:14 Pulse Rate 58 L 03/16/18 06:14 Respiratory Rate 18 03/16/18 06:14 Blood Pressure 110/70 03/16/18 06:14 O2 Sat by Pulse Oximetry (%) Pertinent Admission Physical Exam Findings: Withdrawal symptoms Laboratory Tests 03/12/18 03/13/18 03/13/18 13:20 05:45 05:45 WBC 3.5 L RBC 3.82 L Hgb 12.5 Hct 35.2 L MCV 92.2 MCH 32.6 MCHC 35.3 RDW 14.8 Plt Count 72 L D MPV 9.7 D Sodium 132 L Potassium 4.5 Chloride 102 Carbon Dioxide 25 Anion Gap 6 L BUN 10 Creatinine 0.8 Creat Clearance w eGFR > 60 Random Glucose 87 Calcium 8.1 L Total Bilirubin 0.6 AST 146 H ALT 70 H Alkaline Phosphatase 78 Total Protein 11.0 H Albumin 3.2 L Urine Color Straw Urine Appearance Clear Urine pH 7.0 Ur Specific [place] 1.006 L Urine Protein Negative Urine Glucose (UA) Negative Urine Ketones Negative Urine Blood 2+ H Urine Nitrite Negative Urine Bilirubin Negative Urine Urobilinogen Negative Ur Leukocyte Esterase Negative Urine WBC (Auto) <1 Urine RBC (Auto) <1 Ur Epithelial Cells Urine Mucus RPR Titer 03/13/18 03/13/18 05:45 13:15 WBC RBC Hgb Hct MCV MCH MCHC RDW Plt Count MPV Sodium Potassium Chloride Carbon Dioxide Anion Gap BUN Creatinine Creat Clearance w eGFR Random Glucose Calcium Total Bilirubin AST ALT Alkaline Phosphatase Total Protein Albumin Urine Color Yellow Urine Appearance Clear Urine pH 7.0 Ur Specific [place] 1.009 L Urine Protein Negative Urine Glucose (UA) Negative Urine Ketones Negative Urine Blood 2+ H Urine Nitrite Negative Urine Bilirubin Negative Urine Urobilinogen Negative Ur Leukocyte Esterase Negative Urine WBC (Auto) <1 Urine RBC (Auto) 4 Ur Epithelial Cells Rare Urine Mucus Rare RPR Titer Nonreactive Labs reviewed: persistent microscopic hematuria (encouraged PO water intake, instructed to follow up with PCP within 1-2 weeks) - Treatment Hospital Course: Detox Protocol Followed, Detoxed Safely, Responded well, Discharged Condition Good - Medication Discharge Medications: Ambulatory Orders Albuterol Sulfate Inhaler - [Ventolin HFA Inhaler -] 2 inh IH Q4H PRN #1 inhaler 09/09/17 Dolutegravir Sodium [Tivicay] 50 mg PO DAILY #30 tablet 09/09/17 Emtricitabine/Tenofovir [Truvada -] 1 tab PO DAILY #30 tablet 09/09/17 Aspirin [Aspirin EC] 81 mg PO DAILY 03/12/18 Sulfamethoxazole/Trimethoprim [Bactrim Ds -] 1 tab PO BID 03/12/18 levETIRAcetam [Keppra -] 1,000 mg PO BID 03/12/18 Clindamycin [Cleocin -] 150 mg PO Q6H 7 Days #28 capsule 03/15/18 Sulfamethoxazole/Trimethoprim [Bactrim Ds Tablet] 1 each PO BID #14 tablet 03/15 - Diagnosis (1) Alcohol dependence with uncomplicated withdrawal Status: Acute (2) Opioid dependence with withdrawal Status: Acute (3) Sedative, hypnotic or anxiolytic dependence with withdrawal, uncomplicated Status: Acute (4) Asthma Status: Chronic Qualifiers: Asthma severity: mild Asthma persistence: intermittent Asthma complication type: uncomplicated Qualified Code(s): J45.20 - Mild intermittent asthma, uncomplicated (5) Cirrhosis of liver Status: Chronic Qualifiers: Hepatic cirrhosis type: unspecified hepatic cirrhosis Ascites presence: without ascites Qualified Code(s): K74.60 - Unspecified cirrhosis of liver (6) HIV (human immunodeficiency virus infection) Status: Chronic (7) Hepatitis C Status: Chronic Qualifiers: Viral hepatitis chronicity: chronic Hepatic coma status: without hepatic coma Qualified Code(s): B18.2 - Chronic viral hepatitis C (8) Microscopic hematuria Status: Acute - AMA Did Patient Leave Against Medical Advice: No (F/U with PCP within 1-2 weeks)
== END 2018-03-16 09:33 | disposition home or self-care (01) | DRG 773 ==
LOC: YASAS 08:42 → Y3N 11:42
PROC: HZ2ZZZZ Detoxification Services for Substance Abuse Treatment (ICD-10-PCS; principal; 2018-03-12)
DX: F10.230 Alcohol dependence with withdrawal, uncomplicated (principal); F13.230 Sedative, hypnotic or anxiolytic dependence with withdrawal, uncomplicated; F11.20 Opioid dependence, uncomplicated; Z21 Asymptomatic human immunodeficiency virus [HIV] infection status; R56.9 Unspecified convulsions; J45.20 Mild intermittent asthma, uncomplicated; K74.60 Unspecified cirrhosis of liver; B18.2 Chronic viral hepatitis C; R31.29 Other microscopic hematuria; L03.114 Cellulitis of left upper limb; R26.89 Other abnormalities of gait and mobility; Z99.89 Dependence on other enabling machines and devices
CPT/HCPCS: 36415; 80053; 81003; 81015; 85027; 86593

== ENCOUNTER 2018-07-08 09:20 | Inpatient (IN) | payer OTHER ==
[2018-07-08 10:12] VITALS: BMI 24.9
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
[2018-07-08] MEDS ORDERED: IBUPROFEN 400 MG TABLET (FP) PO PRN (11:10)
[2018-07-08] MEDS ORDERED: hydrOXYzine PAMOATE 25 MG CAPSULE (FP) PO PRN (11:10)
[2018-07-08] MEDS ORDERED: MAGNESIUM CITRATE 300 ML BOTTLE PO PRN (11:10)
[2018-07-08] MEDS ORDERED: METHOCARBAMOL 500 MG TABLET PO PRN (11:10)
[2018-07-08] MEDS ORDERED: MENTHOL/PHENOL 1 EACH UD MM PRN (11:10)
[2018-07-08] MEDS ORDERED: MAG HYDROX/AL HYDROX/SIMETH 30 ML UNIT-DOSE CUP PO PRN (11:10)
[2018-07-08] MEDS ORDERED: BISMUTH SUBSALICYLATE 262 MG/15 ML BTL PO PRN (11:10)
[2018-07-08] MEDS ORDERED: MELATONIN 5 MG TABLETS PO PRN (11:10)
[2018-07-08] MEDS ORDERED: ACETAMINOPHEN 325 MG TABLET (FP) PO PRN ×2 (11:10)
[2018-07-08] MEDS ORDERED: MAGNESIUM HYDROX 2400MG/30ML ORAL SUSPENSION 30 ML CUP PO PRN (11:10)
[2018-07-08] MEDS ORDERED: NICOTINE POLACRILEX 2 MG GUM BUC PRN (11:10)
[2018-07-08] MEDS ORDERED: ALBUTEROL SO4 8 GM HFA INHALER IH PRN (11:13)
[2018-07-08] MEDS ORDERED: METHADONE HCL 10 MG TABLET PO ONE (11:16)
[2018-07-08] MEDS: diazePAM 5 MG TABLET PO SCH ×2 (13:06→22:05)
[2018-07-08] MEDS: diazePAM 5 MG TABLET PO PRN (19:00)
[2018-07-08] MEDS: levETIRAcetam 500 MG TABLET (FP) PO SCH (22:05)
[2018-07-08] MEDS: SULFAMETHOXAZOLE/TRIMETHOPRIM 800MG/160MG D.S. TABLET PO SCH (22:05)
[2018-07-08] MEDS: THIAMINE HCL 100 MG TABLET (FP) PO SCH (22:05)
[2018-07-08 23:31] LABS: HEMATOCRIT 34.5 % (35.4-49); HEMOGLOBIN 11.6 GM/dL (11.7-16.9); MCH 32.2 pg (25.7-33.7); MCHC 33.6 g/dl (32.0-35.9); MEAN CELL VOLUME 95.8 fl (80-96); RDW 15.8 % (11.9-15.9); WHITE BLOOD COUNT 4.9 K/mm3 (4.0-10.0)
[2018-07-08 23:45] LABS: ALBUMIN 2.8 g/dl (3.4-5.0); ALK PHOS 70 U/L (45-117); ANION GAP 5 MMOL/L (8-16); BILIRUBIN,TOTAL 0.4 mg/dL (0.2-1); BLOOD UREA NITROGEN 9 mg/dL (7-18); CALCIUM 8.2 mg/dL (8.5-10.1); CHLORIDE 100 mmol/L (98-107); CO2 25 mmol/L (21-32); CREATININE 0.7 mg/dL (0.55-1.3); GLUCOSE,RANDOM 96 mg/dL (74-106); POTASSIUM 4.1 mmol/L (3.5-5.1); SGOT/AST 99 U/L (15-37); SGPT/ALT 46 U/L (13-61); SODIUM 130 mmol/L (136-145); TOT PROT 11.2 g/dl (6.4-8.2)
[2018-07-09 03:15] LABS: MEAN PLT VOLUME 10.2 fl (7.5-11.1); PLATELET COUNT 58 K/MM3 (134-434)
[2018-07-09] MEDS: diazePAM 5 MG TABLET PO SCH ×3 (05:24→22:16)
[2018-07-09] MEDS ORDERED: METHADONE HCL 40 MG DISPERSABLE TABLET PO ONE (06:00)
[2018-07-09] MEDS ORDERED: PRENATAL VITAMINS W/ FOLIC ACID TABLET (FP) PO SCH (10:00)
[2018-07-09] MEDS ORDERED: ASPIRIN COATED 81 MG TABLET.EC PO SCH (10:00)
[2018-07-09] MEDS: levETIRAcetam 500 MG TABLET (FP) PO SCH ×2 (10:07→22:16)
[2018-07-09] MEDS: SULFAMETHOXAZOLE/TRIMETHOPRIM 800MG/160MG D.S. TABLET PO SCH ×2 (10:07→22:15)
[2018-07-09] MEDS: diazePAM 5 MG TABLET PO PRN ×2 (12:20→19:23)
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
[2018-07-09 14:54] LABS: EPI CELLS 0.5 /HPF (0-5/HPF); PH,URINE >= 9.0 (5.0-8.0); URINE APPEARANCE CLEAR; URINE BACTERIA 4.4 /hpf (NEGATIVE); URINE BILIRUBIN NEGATIVE (NEGATIVE); URINE CASTS 0 /lpf (0-8); URINE COLOR YELLOW; URINE GLUCOSE (UA) NEGATIVE (NEGATIVE); URINE KETONE NEGATIVE (NEGATIVE); URINE LEUK ESTERASE NEGATIVE (NEGATIVE); URINE NITRITE NEGATIVE (NEGATIVE); URINE PROTEIN NEGATIVE (NEGATIVE); URINE RBC 30 /hpf (0-4); URINE WBC 2 /hpf (0-5)
[2018-07-09] MEDS: THIAMINE HCL 100 MG TABLET (FP) PO SCH (22:15)
[2018-07-10] MEDS: diazePAM 5 MG TABLET PO PRN (00:46)
[2018-07-10] MEDS ORDERED: METHADONE HCL 10 MG TABLET ONE (04:14)
[2018-07-10] MEDS ORDERED: METHADONE HCL 40 MG DISPERSABLE TABLET ONE (04:15)
[2018-07-10] MEDS ORDERED: diazePAM 5 MG TABLET PO ONE (06:00)
[2018-07-10] MEDS ORDERED: METHADONE 40 MG, METHADONE 10 MG PO ONE (06:00)
[2018-07-10] MEDS ORDERED: METHADONE HCL 10 MG TABLET PO ONE (06:00)
[2018-07-10 06:18] VITALS: BP 147/95; PULSE 62; TEMP 98.4
--- NOTE | 2018-07-10 08:45 | DS ---
[facility] Detox Discharge Summary Admission Date: 07/08/18 Discharge Date: 07/10/18 - History Present History: Alcohol Dependence, Sedative Dependence Additional Comments: 48 yeas old male admitted on 07/08/18 for alcohol and benzo withdrawal stabilization feeling ok today preferring to begin alcohol and benzo rehab today alert no acute distress denies suicidal ideation aftercare patient preferring return to methadone program for aftercare Pertinent Past History: bring in medication list and lab report to aftercare appointment - Physical Exam Results Vital Signs: Vital Signs Temperature 98.4 F 07/10/18 06:17 Pulse Rate 62 07/10/18 06:17 Respiratory Rate 18 07/10/18 06:30 Blood Pressure 147/95 07/10/18 06:17 O2 Sat by Pulse Oximetry (%) Pertinent Admission Physical Exam Findings: alcohol and benzo withdrawal sx Laboratory Last Values WBC 4.9 K/mm3 (4.0-10.0) 07/08/18 11:05 RBC 3.60 M/mm3 (4.00-5.60) L 07/08/18 11:05 Hgb 11.6 GM/dL (11.7-16.9) L 07/08/18 11:05 Hct 34.5 % (35.4-49) L 07/08/18 11:05 MCV 95.8 fl (80-96) 07/08/18 11:05 MCH 32.2 pg (25.7-33.7) 07/08/18 11:05 MCHC 33.6 g/dl (32.0-35.9) 07/08/18 11:05 RDW 15.8 % (11.9-15.9) 07/08/18 11:05 Plt Count 58 K/MM3 (134-434) L 07/08/18 11:05 MPV 10.2 fl (7.5-11.1) 07/08/18 11:05 Manual Slide Review No clumping 07/08/18 11:05 Platelet Comment No clumping noted 07/08/18 11:05 Sodium 130 mmol/L (136-145) L 07/08/18 11:05 Potassium 4.1 mmol/L (3.5-5.1) 07/08/18 11:05 Chloride 100 mmol/L (98-107) 07/08/18 11:05 Carbon Dioxide 25 mmol/L (21-32) 07/08/18 11:05 Anion Gap 5 MMOL/L (8-16) L 07/08/18 11:05 BUN 9 mg/dL (7-18) 07/08/18 11:05 Creatinine 0.7 mg/dL (0.55-1.3) 07/08/18 11:05 Creat Clearance w eGFR 119.37 (>60) 07/08/18 11:05 Random Glucose 96 mg/dL (74-106) 07/08/18 11:05 Calcium 8.2 mg/dL (8.5-10.1) L 07/08/18 11:05 Total Bilirubin 0.4 mg/dL (0.2-1) 07/08/18 11:05 AST 99 U/L (15-37) H 07/08/18 11:05 ALT 46 U/L (13-61) 07/08/18 11:05 Alkaline Phosphatase 70 U/L (45-117) 07/08/18 11:05 Total Protein 11.2 g/dl (6.4-8.2) H 07/08/18 11:05 Albumin 2.8 g/dl (3.4-5.0) L 07/08/18 11:05 Urine Color Yellow 07/09/18 01:05 Urine Appearance Clear 07/09/18 01:05 Urine pH >= 9.0 (5.0-8.0) H D 07/09/18 01:05 Ur Specific [place] 1.008 (1.010-1.035) L 07/09/18 01:05 Urine Protein Negative (NEGATIVE) 07/09/18 01:05 Urine Glucose (UA) Negative (NEGATIVE) 07/09/18 01:05 Urine Ketones Negative (NEGATIVE) 07/09/18 01:05 Urine Blood 2+ (NEGATIVE) H 07/09/18 01:05 Urine Nitrite Negative (NEGATIVE) 07/09/18 01:05 Urine Bilirubin Negative (NEGATIVE) 07/09/18 01:05 Urine Urobilinogen 1.0 mg/dL (0.2-1.0) 07/09/18 01:05 Ur Leukocyte Esterase Negative (NEGATIVE) 07/09/18 01:05 Urine WBC (Auto) 2 /hpf (0-5) 07/09/18 01:05 Urine RBC (Auto) 30 /hpf (0-4) 07/09/18 01:05 Urine Casts (Auto) 0 /lpf (0-8) 07/09/18 01:05 U Epithel Cells (Auto) 0.5 /HPF (0-5/HPF) 07/09/18 01:05 Urine Bacteria (Auto) 4.4 /hpf (NEGATIVE) 07/09/18 01:05 RPR Titer Nonreactive (NONREACTIVE) 07/08/18 11:05 lab noted - Treatment Hospital Course: Detox Protocol Followed, Detoxed Safely, Responded well, Discharged Condition Good, Rehab Referral Accepted Patient has Accepted a Rehab Referral to: methadone maintenance program - Medication Discharge Medications: Ambulatory Orders Albuterol Sulfate Inhaler - [Ventolin HFA Inhaler -] 2 inh IH Q4H PRN #1 inhaler 09/09/17 Dolutegravir Sodium [Tivicay] 50 mg PO DAILY #30 tablet 09/09/17 Aspirin [Aspirin EC] 81 mg PO DAILY 03/12/18 levETIRAcetam [Keppra -] 1,000 mg PO BID 03/12/18 Clindamycin [Cleocin -] 150 mg PO Q6H 7 Days #28 capsule 03/15/18 Sulfamethoxazole/Trimethoprim [Bactrim Ds Tablet] 1 each PO BID #14 tablet 03/15 Emtricitabine/Tenofov Alafenam [Descovy 200-25 mg Tablet (Nf)] 1 each PO DAILY 07/08/18 - Diagnosis (1) HIV (human immunodeficiency virus infection) Status: Chronic Qualifiers: HIV symptom status: asymptomatic Qualified Code(s): Z21 - Asymptomatic human immunodeficiency virus [HIV] infection status (2) Hepatitis C Status: Chronic Qualifiers: Viral hepatitis chronicity: chronic Hepatic coma status: without hepatic coma Qualified Code(s): B18.2 - Chronic viral hepatitis C (3) Asthma Status: Chronic Qualifiers: Asthma severity: mild Asthma persistence: intermittent Asthma complication type: uncomplicated Qualified Code(s): J45.20 - Mild intermittent asthma, uncomplicated (4) Methadone maintenance therapy patient Status: Chronic (5) Alcohol dependence with uncomplicated withdrawal Status: Acute (6) Hepatitis B Status: Chronic Qualifiers: Viral hepatitis chronicity: unspecified Hepatic coma status: without hepatic coma Hepatitis delta agent presence: without delta-agent Qualified Code(s): B19.10 - Unspecified viral hepatitis B without hepatic coma (7) Nicotine dependence Status: Acute Qualifiers: Nicotine product type: cigarettes Substance use status: in withdrawal Qualified Code(s): F17.213 - Nicotine dependence, cigarettes, with withdrawal (8) Use of cane as ambulatory aid Status: Chronic - AMA Did Patient Leave Against Medical Advice: No
[2018-07-11] MEDS ORDERED: METHADONE 40 MG, METHADONE 20 MG PO SCH (06:00)
[2018-07-11] MEDS ORDERED: METHADONE HCL 40 MG DISPERSABLE TABLET PO SCH (06:00)
== END 2018-07-10 09:08 | disposition home or self-care (01) | DRG 773 ==
LOC: YASAS 09:20 → Y3N 11:19
PROVIDERS: ADMIT Surgery; ATTEND Surgery
PROC: HZ2ZZZZ Detoxification Services for Substance Abuse Treatment (ICD-10-PCS; principal; 2018-07-08)
DX: F10.230 Alcohol dependence with withdrawal, uncomplicated (principal); F13.230 Sedative, hypnotic or anxiolytic dependence with withdrawal, uncomplicated; F11.20 Opioid dependence, uncomplicated; F17.210 Nicotine dependence, cigarettes, uncomplicated; Z21 Asymptomatic human immunodeficiency virus [HIV] infection status; J45.20 Mild intermittent asthma, uncomplicated; B18.2 Chronic viral hepatitis C; B19.10 Unspecified viral hepatitis B without hepatic coma; G40.909 Epilepsy, unspecified, not intractable, without status epilepticus; R26.89 Other abnormalities of gait and mobility; Z99.89 Dependence on other enabling machines and devices; R63.4 Abnormal weight loss; Z68.25 Body mass index [BMI] 25.0-25.9, adult
CPT/HCPCS: 36415; 80053; 81003; 85027; 86593